=== PATIENT | male | born 1990 | race Caucasian/White ===

== ENCOUNTER 2019-08-13 01:15 | Day surgery (SDC) | payer BC, MEDICAID, SELFPAY ==
[2019-08-11 09:17] VITALS: BMI 29.3
[2019-08-13 13:13] VITALS: BP 129/82; PULSE 76; RESP 16; TEMP 37.2; O2SAT 98
--- NOTE | 2019-08-13 13:20 | WPDANESEPPF ---
Anes - Initial Pre Proc Eval Procedure: Operation Date: 08/13/19 14:30 Proposed Procedures p Esophagogastroduodenoscopy - Davy Michel MD Date/Time: 08/13/19 13:20 Surgeon: Davy Michel MD Pre Op Diagnosis: GERD Patient Data Age: 28 Gender: M Height: 5 ft 5 in Weight: 80.1 kg Last Vital Signs Temp 98.9 F 08/13/19 13:13 Pulse 76 08/13/19 13:13 Resp 16 08/13/19 13:13 BP 129/82 08/13/19 13:13 Pulse Ox 98 08/13/19 13:13 Allergies Allergy/AdvReac Type Severity Reaction Status Date / Time amoxicillin Allergy Unknown Rash Verified 08/11/19 09:08 Home Medications Medication Instructions Recorded Confirmed Type cholestyramine (with sugar) 4 gram 4 gm PO DAILY #378 gm 08/10/19 08/11/19 Rx oral powder aspirin 81 mg PO DAILY 08/11/19 08/11/19 History fluticasone propionate 1 spray INTRANASAL DAILY 08/11/19 08/11/19 History loratadine 10 mg PO DAILY 08/11/19 08/11/19 History ranitidine HCl 150 mg PO DAILY 08/11/19 08/11/19 History rosuvastatin 20 mg PO DAILY 08/11/19 08/11/19 History Patient hx anesthesia problems: none Family hx anesthesia problems: none PMFSH Past Medical History Medical History (Updated 08/10/19 @ 15:09 by Davy Michel MD) Aspiration into lower respiratory tract Choking due to food (regurgitated) Diarrhea Down syndrome GERD (gastroesophageal reflux disease) Polycythemia Family History Family History (Updated 03/11/18 @ 11:42 by DOCTOR UNKNOWN) Mother Patient's mother is in good health Father Family history of sleep apnea Social History Social History Smoking status: Never smoker Anes - Eval Final PreProcedure Day of Procedure 08/13/19 13:20 Patient weight: overweight Heart: regular rate and rhythm Lungs: clear to auscultation Airway: Mallampati scale class III Neurological: alert and oriented Last oral intake: >/= 8 hours ASA classification: II Emergent: no Anesthetic plan: proceed Anesthesia type and monitoring: general GIVS and standard monitoring Informed Consent: The patient's anesthetic plan and its attendant risks and benefits were discussed with the patient/family/POA. Questions were solicited and answers provided to the satisfaction of the patient/family/POA.
[2019-08-13] MEDS: LACTATED RINGERS 1,000 ML 150 ML IV CONT (13:25)
--- NOTE | 2019-08-13 14:43 | WPDHPUPDATE1 ---
History and Physical Update Update Date/Time: 08/13/19 14:43 History and Physical has been reviewed, including an updated exam of the patient. There are NO changes in the patient's condition. Risks, benefits, and alternatives have been discussed and questions answered. Patient agrees to proceed with procedure.
[2019-08-13 14:51] VITALS: BP 86/63; PULSE 79; RESP 22; O2SAT 98
[2019-08-13 15:01] VITALS: BP 105/74; PULSE 68; RESP 20; O2SAT 98
[2019-08-13 15:11] VITALS: BP 106/74; PULSE 64; RESP 20; O2SAT 99
== END 2019-08-13 15:24 | disposition home or self-care (01) ==
PROVIDERS: PCP Internal Medicine; Visit Provider Internal Medicine Gastroenterology
PROC: 0DJ08ZZ Inspection of Upper Intestinal Tract, Via Natural or Artificial Opening Endoscopic (ICD-10-PCS; CPT 43235; principal; 2019-08-13 14:30)
DX: K21.0 Gastro-esophageal reflux disease with esophagitis (principal); K29.50 Unspecified chronic gastritis without bleeding; Q90.9 Down syndrome, unspecified; Z79.82 Long term (current) use of aspirin
CPT/HCPCS: 43239; 87081; 88305; J2704; J7120

== ENCOUNTER 2019-08-20 14:51 | Outpatient (CLI) | payer BC, MEDICAID, SELFPAY ==
--- NOTE | ~2019-08-20 | XR_ITS ---
EXAMINATION: XR barium swallow modified DATE: 08/20/2019 15:37 INDICATION: Nausea with vomiting, unspecified. TECHNIQUE: Modified barium esophagram was performed by myself to administered fluoroscopy, in conjun ction with speech pathologist who administered barium in varying consistencies as per speech patholog ist documentation. This was recorded on tape. A single fluoroscopic spot image was recorded. The DA P for this procedure was 1.678 Gycm2. Fluoroscopy exposure time was 1.3 minutes. FINDINGS: Oral stage: Adequate function. Pharyngeal phase: Adequate function. Laryngeal penetration: None. Aspiration: None. Laryngeal sensitivity: Not applicable. IMPRESSION: Unremarkable modified barium swallow. Please refer to speech pathologist findings and sp ecific feeding recommendations. Reviewed, dictated and finalized at location A. RALOGY TEACHER IMPRESSION: Unremarkable modified barium swallow. Please refer to speech patho logist findings and specific feeding recommendations.
--- NOTE | 2019-08-21 08:55 | STOPEVAL ---
MODIFIED BARIUM SWALLOW EVALUATION: Thank you for referring this patient to [facility]. Admitting Provider: Attending Provider: Davy Michel MD FAX #: [phone] Referring Provider: SATINDER Outpatient Evaluation Start: 08/20/19 17:11 Freq: Status: Active Protocol: Document 08/20/19 17:11 BECHERERT (Rec: 08/20/19 17:13 BECHERERT [id number]) Therapy Assessment Status Assessment Status Assessment Status Evaluation Outpatient Past Medical History Neurological History Hx Other Neurological Disorders Yes: bernie syndrome-high functioning Cardiovascular History Hx Chest Pain Yes: r/o for heart testing neg Hx Hypercholesterolemia Yes Respiratory History Hx Pneumonia Yes: aspirate 01/2019 hospitalized at [facility] Hx Sleep Apnea Yes Gastrointestinal History Hx Cholecystectomy Yes: 06/2018 Hx Gastroesophageal Reflux Disease Yes Hx Hernia Yes: 2004 inguinal left repair Hx Other Gastrointestinal Disorders Yes: 07/2019 nausea, vomiting, abd pain for 1 yr Genitourinary History Hx Genitourinary Disorders No Significant History Musculoskeletal History Hx Arthritis Yes: generalized Hematological History Are You Aware That You Have Any Yes Antibodies? Hx Other Hematological Disorders Yes: polycythemia dx 07/2019 on aspirin 81mg Endocrine History Hx Endocrine Disorders No Significant History HEENT History Hx Tonsillectomy Yes Integumentary History Hx Skin Disorders No Significant History Reproductive History Hx Reproductive Disorders No Significant History Psychosocial History Hx Psychiatric Disorders No Significant History Pain History History of Any Previous or Ongoing No Significant History Instance of Pain Anesthesia History Hx Other Anesthesia Reactions Yes: nausea Prior Level of Function Prior Swallow Level Prior Intake Method Oral Prior Diet Soft and Bite-Sized (Level 6 Diet) Prior Liquid Consistency Thin (Level 0 Diet) Pain Assessment Timing of Pain Assessment Timing of Pain Assessment Assessment Self Report Self Report Pain Level 0 Pain Scale Pain Scale Used Numeric (1 - 10) Pain Score Pain Score 0: Self Report Modified Barium Swallow Evaluation Recent Swallowing History Reports Dysphagia Yes: when I eat food I get choked Duration of Dysphagia per patient, like forever Other Related History Down Syndrome Other Factors Impacting Dysphagia None History of Pneumonia No: per pt Reported Difficult Consistencies Solids
== END 2019-08-20 14:52 | disposition home or self-care (01) ==
LOC: ANHIMG 14:53
PROVIDERS: Visit Provider Internal Medicine Gastroenterology
DX: R11.2 Nausea with vomiting, unspecified (principal); T17.800A Unspecified foreign body in other parts of respiratory tract causing asphyxiation, initial encounter
CPT/HCPCS: 92611

== ENCOUNTER 2019-08-27 12:20 | Outpatient (CLI) | payer BC, MEDICAID, SELFPAY ==
--- NOTE | ~2019-08-27 | NM_ITS ---
EXAM: NM gastric emptying study DATE: 08/27/2019 17:02 INDICATION: Nausea and vomiting TECHNIQUE: A gastric emptying study was performed using the methodology of Ketan TORRES, et al. J Nucl Med 2007; 48:568-572. The patient was given a meal consisting of 2 scrambled eggs labeled with 0.926 mCi Tc-99m sulfur colloid, 2 slices of toast, two packages of jam, and approximately 120 mL of water . Simultaneous anterior and posterior 1-min images of the abdomen were obtained with the patient supi ne at multiple time points over a total period of 4 hours. The geometric mean of anterior and posteri or views was determined, and the percentage retention was calculated for each time point. COMPARISON: None. FINDINGS: Gastric retention of the radiotracer-labeled meal was 85%, 54%, and 41% at the 1-hour, 2-hour, and 4- hour time points, respectively. With this technique, apparent rapid gastric emptying is suggested by <30% gastric retention at 1 hour. Delayed gastric emptying is defined by gastric retention of >90% at 1 hour, >60% retention at 2 hours, or >10% retention at 4 hours. IMPRESSION: 1. Delayed gastric emptying. Reviewed, dictated and finalized at location A. TROOM REPORTER
== END 2019-08-27 12:21 | disposition home or self-care (01) ==
PROVIDERS: PCP Internal Medicine; Visit Provider Internal Medicine Gastroenterology
DX: R11.2 Nausea with vomiting, unspecified (principal); K30 Functional dyspepsia
CPT/HCPCS: 78264; A9541

== ENCOUNTER 2020-07-23 01:21 | Outpatient (CLI) | payer BC, MEDICAID, SELFPAY ==
[2020-07-23 18:47] LABS: SARS-CoV-2 RNA PCR Negative
== END 2020-07-23 01:22 | disposition home or self-care (01) ==
LOC: ANHCOVIDDT 01:22
PROVIDERS: PCP Internal Medicine; Visit Provider Internal Medicine Gastroenterology
DX: Z01.812 Encounter for preprocedural laboratory examination (principal); Z20.822 Contact with and (suspected) exposure to COVID-19
CPT/HCPCS: C9803; U0003; U0005

== ENCOUNTER 2020-07-26 01:53 | Day surgery (SDC) | payer BC, MEDICAID, SELFPAY ==
[2020-07-11 11:07] VITALS: BMI 29.0
[2020-07-26 06:49] VITALS: BP 109/72; PULSE 74; RESP 20; TEMP 37; O2SAT 99
[2020-07-26] MEDS: LACTATED RINGERS 1,000 ML 150 ML IV CONT (07:07)
--- NOTE | 2020-07-26 07:13 | WPDANESEPPF ---
Anes - Initial Pre Proc Eval Procedure: Operation Date: 07/26/20 08:00 Proposed Procedures p Colonoscopy - Davy Michel MD Date/Time: 07/26/20 07:13 Surgeon: Davy Michel MD Pre Op Diagnosis: Diarrhea Patient Data Age: 29 Gender: M Height: 5 ft 5 in Weight: 82.3 kg Last Vital Signs Temp 98.6 F 07/26/20 06:49 Pulse 74 07/26/20 06:49 Resp 20 07/26/20 06:49 BP 109/72 07/26/20 06:49 Pulse Ox 99 07/26/20 06:49 Allergies Allergy/AdvReac Type Severity Reaction Status Date / Time amoxicillin Allergy Unknown Rash Verified 07/26/20 06:48 Home Medications Medication Instructions Recorded Confirmed Type fluticasone propionate 1 spray INTRANASAL DAILY 08/11/19 07/11/20 History loratadine 10 mg PO DAILY 08/11/19 07/11/20 History ranitidine HCl 150 mg PO PRN PRN 08/11/19 07/11/20 History rosuvastatin 20 mg PO DAILY 08/11/19 07/11/20 History cholestyramine (with sugar) 4 gram See Rx Instructions .ROUTE 05/31/20 07/11/20 Rx oral powder .COMPLEX #1134 g omeprazole 20 mg capsule,delayed 20 mg PO BID 30 Days #60 cap 07/06/20 07/11/20 Rx release Patient hx anesthesia problems: none Family hx anesthesia problems: none PMFSH Past Medical History Medical History (Updated 07/06/20 @ 15:04 by Davy Michel MD) Aspiration into lower respiratory tract Blood in stool Choking due to food (regurgitated) Diarrhea Down syndrome Erosive gastritis Gastroparesis GERD (gastroesophageal reflux disease) Irritable bowel syndrome with diarrhea Polycythemia Submucosal lesion of stomach Family History Family History (Updated 03/11/18 @ 11:42 by DOCTOR UNKNOWN) Mother Patient's mother is in good health Father Family history of sleep apnea Social History Social History Smoking status: Never smoker Alcohol intake: never Substance use type: does not use Living arrangements: with family Spiritual care concerns: No Anes - Eval Final PreProcedure Day of Procedure 07/26/20 07:13 Patient weight: overweight Heart: regular rate and rhythm Lungs: clear to auscultation Airway: Mallampati scale class III Neurological: alert and oriented Last oral intake: >/= 8 hours ASA classification: II Emergent: no Anesthetic plan: proceed Anesthesia type and monitoring: general GIVS and standard monitoring Informed Consent: The patient's anesthetic plan and its attendant risks and benefits were discussed with the patient/family/POA. Questions were solicited and answers provided to the satisfaction of the patient/family/POA.
--- NOTE | 2020-07-26 07:37 | WPDHPUPDATE1 ---
History and Physical Update Update Date/Time: 07/26/20 07:37 History and Physical has been reviewed, including an updated exam of the patient. There are NO changes in the patient's condition. Risks, benefits, and alternatives have been discussed and questions answered. Patient agrees to proceed with procedure.
[2020-07-26 07:54] VITALS: BP 83/48; PULSE 62; RESP 15; O2SAT 93
[2020-07-26 08:04] VITALS: BP 83/47; PULSE 61; RESP 15; O2SAT 95
[2020-07-26 08:14] VITALS: BP 82/52; PULSE 60; RESP 15; O2SAT 97
[2020-07-26 08:20] VITALS: BP 106/62; PULSE 61; RESP 18; O2SAT 99
== END 2020-07-26 08:38 | disposition home or self-care (01) ==
PROVIDERS: PCP Internal Medicine; Visit Provider Internal Medicine Gastroenterology
PROC: 0DJD8ZZ Inspection of Lower Intestinal Tract, Via Natural or Artificial Opening Endoscopic (ICD-10-PCS; CPT 45378; principal; 2020-07-26 08:00)
DX: R19.7 Diarrhea, unspecified (principal); Q90.9 Down syndrome, unspecified; K21.9 Gastro-esophageal reflux disease without esophagitis; K58.0 Irritable bowel syndrome with diarrhea; K29.70 Gastritis, unspecified, without bleeding; K31.84 Gastroparesis; D75.1 Secondary polycythemia; K64.8 Other hemorrhoids
CPT/HCPCS: 45380; 88305; J2704; J7120

== ENCOUNTER 2021-11-27 04:27 | Observation (INO) | payer BC, MEDICAID, SELFPAY ==
[2021-11-27] VITALS (21 sets, daily range): BP systolic 108–141; BP diastolic 62–92; PULSE 65–111; RESP 16–20; TEMP 36.6–36.9; O2SAT 93–100; BMI 30.7
--- NOTE | ~2021-11-27 | XR_ITS ---
EXAMINATION: XR chest 2V DATE: 11/27/2021 05:04 INDICATION: Chest pain. TECHNIQUE: Frontal and lateral views of the chest were obtained. COMPARISON: Chest 2 views 04/03/2018, CT abdomen and pelvis 11/27/2021 FINDINGS: The chest demonstrates clear lungs without pneumonia, pleural effusion, or pneumothorax. Th e heart size is normal. IMPRESSION: 1. No acute cardiopulmonary disease. Reviewed, dictated and finalized at location A.
--- NOTE | ~2021-11-27 | CT_ITS ---
EXAMINATION: CT abdomen pelvis wo con DATE: 11/27/2021 05:02 INDICATION: Chest and abdominal pain. Emesis. TECHNIQUE: Computed tomography (CT) of the abdomen and pelvis was performed without intravenous contr ast. Automated exposure control and iterative reconstruction technique were employed. The dose-length product was 692.39 mGy-cm. COMPARISON: CT abdomen and pelvis 02/15/2018 FINDINGS: The visualized portions of the lung bases demonstrate mild atelectasis. No pleural effusion . The heart size is normal. There is a small pericardial effusion. There is diffuse hepatic steatosis . The gallbladder is absent. The spleen, pancreas, adrenal glands, and kidneys are normal. There is n o urolithiasis. There are no dilated loops of bowel. The appendix is normal. There are no pathologica lly enlarged lymph nodes. There is no free intraperitoneal fluid. There is a right inguinal hernia co ntaining fat. There is mild lumbar spondylosis. IMPRESSION: 1. Right inguinal hernia containing fat. 2. Diffuse hepatic steatosis. 3. Small pericardial effusion. Reviewed, dictated and finalized at location A.
--- NOTE | ~2021-11-27 | XR_ITS ---
EXAMINATION: XR abdomen NG/feed tube insert DATE: 11/27/2021 06:30 INDICATION: Nasogastric tube placement. TECHNIQUE: An upright view of the abdomen was obtained. COMPARISON: CT abdomen and pelvis 11/27/2021 FINDINGS: The lower abdomen is excluded. The nasogastric tube tip is in the stomach. IMPRESSION: 1. Nasogastric tube tip in the stomach. Reviewed, dictated and finalized at location A.
--- NOTE | 2021-11-27 05:09 | ED.ABDPAIN ---
HPI - Abdominal Pain General Chief Complaint: Abdominal Pain Stated Complaint: black vomiting Time Seen by Provider: 11/27/21 04:37 Source: patient History of Present Illness HPI narrative: Patient presents with concern for throwing up black stuff. Patient ports he has been feeling well for the past couple days been having some chest pain and upper belly pain. This morning he threw up black grainy stuff family was concerned and brought him to the ER for further evaluation. Patient does see a GI physician for erosive esophagitis gastroparesis and has an EGD scheduled for 2 weeks. Patient's pain is achy, constant, no clear aggravating or alleviating factors, no radiation. Patient denies any lightheadedness or denies any fevers cough congestion or shortness of breath. Patient does report some diarrhea but mother reports he has chronic diarrhea. Denies any urinary symptoms. Reports he intermittently takes ibuprofen for various aches and pains but mom reports he he has taken approximately 2 doses in the past 48 hours Related Data Home Medications Medication Instructions Recorded Confirmed rosuvastatin 20 mg tablet 20 mg PO DAILY 08/11/19 11/23/21 fluticasone furoate 27.5 1 spray intranasal DAILY 11/16/21 11/23/21 mcg/actuation nasal spray,suspension (Flonase Sensimist) montelukast 10 mg tablet 10 mg PO DAILY 11/16/21 11/23/21 (Singulair) dicyclomine 10 mg capsule 10 mg PO TID 11/23/21 11/23/21 multivitamin with minerals-folic 1 tablet PO DAILY 11/23/21 11/23/21 acid 0.4 mg tablet omeprazole 20 mg capsule,delayed 40 mg PO DAILY 11/23/21 11/23/21 release Allergies Allergy/AdvReac Type Severity Reaction Status Date / Time amoxicillin Allergy Unknown Rash Verified 11/27/21 04:31 Review of Systems Review of Systems: CONSTITUTIONAL: Denies fever, chills, or sweats. EYES: Denies visual changes, redness, or discharge. ENT: Denies rhinorrhea, congestion, sore throat, or otalgia. CARDIOVASCULAR: Denies palpitations, or edema. RESPIRATORY: Denies cough or dyspnea. GASTROINTESTINAL: Abdominal pain with nausea and vomiting GENITOURINARY: Denies dysuria or hematuria. SKIN: Denies rash or itching. MUSCULOSKELETAL: Denies back pain, joint pain, or myalgia. NEUROLOGIC: Denies headache, numbness, dizziness, or weakness. PSYCHIATRIC: Denies anxiety or depression. All systems reviewed & are unremarkable except as noted in HPI and below PMFSH Past Medical History Medical History Aspiration into lower respiratory tract Bloating Blood in stool Choking due to food (regurgitated) Cough Diarrhea Down syndrome Erosive gastritis Gastroparesis GERD (gastroesophageal reflux disease) Irritable bowel syndrome with diarrhea Polycythemia Submucosal lesion of stomach Family History Family History Mother Patient's mother is in good health Hypertension Father Family history of sleep apnea Diabetes mellitus Hypertension Grandparent Cancer Hypertension Heart disease Social History Social History Smoking status: Never smoker Alcohol intake: never Substance use type: does not use Spiritual care concerns: No Exam Narrative: GENERAL: Well-appearing, well-nourished, and in no acute distress. HEAD: Normocephalic, atraumatic. EYES: PERRLA and EOMI. ENT: Nares clear, no rhinorrhea or epistaxis. Mucous membranes moist. NECK: Supple. No masses. No JVD CHEST: Clear to auscultation. No respiratory distress. No wheezes rales or rhonchi HEART: Regular rate and rhythm. No murmur heard. Normal peripheral pulses. ABDOMEN: Soft, nontender, nondistended, normal active bowel sounds. EXTREMITIES: Normal range of motion. No edema. SKIN: Warm, dry, no rash. NEURO: No focal deficits. Alert and oriented x3. PSYCH: Normal mood and affect. Course Reeva
[2021-11-27] MEDS: SODIUM CHLORIDE 0.9% IV 1,000 ML 999 ML IV CONT (05:24)
[2021-11-27] MEDS: PANTOPRAZOLE SODIUM IV 40 MG VIAL 80 MG IV PUSH (05:26)
[2021-11-27 05:28] LABS: Basophils Absolute Auto 0.1 K/mm3 (0.0-0.1); Basophils Percent Auto 0.9 % (0.2-1.2); Eosinophils Percent Auto 0.7 % (0-4.4); Hematocrit 45.2 % (42.0-52.0); Hemoglobin 15.1 g/dL (14.0-18.0); Immature Granulocyte Absolute 0.02 K/mm3 (0.00-0.031); Immature Granulocyte Percent A 0.4 % (0-0.5); Lymphocytes Absolute Auto 1.27 K/mm3 (0.9-3.2); Lymphocytes Percent Auto 23.2 % (18.3-44.2); Mean Corpuscular HGB Conc 33.4 g/dl (32-36); Mean Corpuscular Hemoglobin 29.4 pg (26-34); Mean Corpuscular Volume 88.1 fl (80-100); Mean Platelet Volume 10.4 fl (7.4-10.4); Monocytes Absolute Auto 0.6 K/mm3 (0.1-0.6); Monocytes Percent Auto 11.7 % (2.6-8.5); Neutrophils Absolute Auto 3.5 K/mm3 (1.3-6.7); Neutrophils Percent Auto 63.1 % (45.5-73.1); Platelet Count Result 232 k/mm3 (150-375); Red Blood Count 5.13 M/mm3 (4.6-6.20); Red Cell Distribution Width 13.6 % (11.5-14.5); White Blood Count 5.5 K/mm3 (4.5-10.0)
[2021-11-27 05:40] LABS: INR 1.1; Prothrombin Time 13.9 Seconds (11.1-14.7)
[2021-11-27 05:41] LABS: Partial Thromboplastin Time 29.3 SECONDS (22.3-36.8)
[2021-11-27 05:44] LABS: Alanine Aminotransferase 24 U/L (6-50); Albumin Level 4.1 g/dL (3.5-5.1); Alkaline Phosphatase 90 U/L (38-126); Anion Gap 7 mmol/L (8-16); Aspartate Amino Transferase 25 U/L (17-59); Bilirubin,Total 0.7 mg/dL (0.2-1.3); Blood Urea Nitrogen 12 mg/dL (9-20); Calcium 8.4 mg/dL (8.4-10.2); Carbon Dioxide 31 mmol/L (22-30); Chloride 101 mmol/L (98-107); Estimated CRCL calculation 89 ml/min; Estimated Glomerular Filt Rate > 60; Glucose 114 mg/dL (65-110); Lipase 28 U/L (23-300); Magnesium 1.9 mg/dL (1.6-2.3); Potassium 3.6 mmol/L (3.4-5.0); Sodium 139 mmol/L (137-145)
[2021-11-27] MEDS: OCTREOTIDE ACETATE 50 MCG/ML VIAL IV PUSH (05:46)
[2021-11-27] MEDS: ONDANSETRON INJ 4 MG/2 ML VIAL (06:08)
[2021-11-27 06:51] LABS: Hematocrit 41.4 % (42.0-52.0)
--- NOTE | 2021-11-27 07:55 | PC.NURSE ---
This patient, Zachery Olvera, was admitted to IMU Room 231-01. Patient/family oriented to hospital policies and general routines including ID bracelet, bed and alarms, visiting hours, pain management, procedures, bathroom and other care routines, personal items, smoking policy, room service/diet, and visiting hours. Information on how to activate the Rapid Response Team has been discussed. Patient/Family are encouraged to report perceived risks to care and to ask questions if they do not understand what they are told or what they should do.
--- NOTE | 2021-11-27 08:58 | PM.IMHP ---
H&P: HPI History of Present Illness Date/Time: 11/27/21 08:58 Chief Complaint: Coffee-ground emesis Narrative: This is a 31-year-old male who presents to the ED yesterday with sudden onset nausea and vomiting. He was vomiting black stuff and hence got alarmed and came to the ED for evaluation. He also associated chest pain and upper abdominal pain and sensation of bloating. He also had liquidy stool along with it. He has recurrent episodes of nausea vomiting and diarrhea in the past. He denies any dark colored stool or any blood in the stool. Denies any fresh blood in his vomitus. He reports his belly was bloated and reported it was hurting yesterday to his family but denies any pain today. NG has been placed in the ED and has been feeling better since then. No fever chills. No cough shortness of breath. His CT abdomen and pelvis did show any acute findings. He is admitted for further evaluation and management Review of Systems Review of Systems: - CONSTITUTIONAL: Denies weight loss, fever and chills. - HEENT: Denies changes in vision and hearing - RESPIRATORY: Denies SOB and cough. - CV: Denies palpitations and CP. - GI: Reports abdominal pain, nausea, vomiting and diarrhea. - : Denies dysuria and urinary frequency. - MSK: Denies myalgia and joint pain. - SKIN: Denies rash and pruritus. - NEUROLOGICAL: Denies headache and syncope. - PSYCHIATRIC: Denies recent changes in mood. Denies anxiety and depression. All systems reviewed & are unremarkable except as noted in HPI and below Constitutional: Constitutional: Reports fatigue and Reports weakness Neurologic: Reports weakness Endocrine: Endocrine: Reports fatigue PMFSH Past Medical History Medical History Aspiration into lower respiratory tract Bloating Blood in stool Choking due to food (regurgitated) Cough Diarrhea Down syndrome Erosive gastritis Gastroparesis GERD (gastroesophageal reflux disease) Irritable bowel syndrome with diarrhea Polycythemia Submucosal lesion of stomach Family History Family History Mother Patient's mother is in good health Hypertension Father Family history of sleep apnea Diabetes mellitus Hypertension Grandparent Cancer Hypertension Heart disease Social History Social History Smoking status: Never smoker Alcohol intake: never Substance use type: does not use Spiritual care concerns: No Meds Home Medications and Allergies Home Medications Medication Instructions Recorded Confirmed Type rosuvastatin 20 mg tablet 20 mg PO DAILY 08/11/19 11/23/21 History fluticasone furoate 27.5 1 spray intranasal DAILY 11/16/21 11/23/21 History mcg/actuation nasal spray,suspension (Flonase Sensimist) montelukast 10 mg tablet 10 mg PO DAILY 11/16/21 11/23/21 History (Singulair) dicyclomine 10 mg capsule 10 mg PO TID 11/23/21 11/23/21 History multivitamin with minerals-folic 1 tablet PO DAILY 11/23/21 11/23/21 History acid 0.4 mg tablet omeprazole 20 mg capsule,delayed 40 mg PO DAILY 11/23/21 11/23/21 History release Allergies Allergy/AdvReac Type Severity Reaction Status Date / Time amoxicillin Allergy Unknown Rash Verified 11/27/21 04:31 Vital Signs Vital Signs - 24 hr 11/27/21 04:31 11/27/21 05:31 11/27/21 05:32 Temperature 98.4 F Pulse Rate 109 H Respiratory Rate 16 Blood Pressure 139/90 125/87 Pulse Oximetry 98 95 96 Oxygen Delivery Room Air 11/27/21 05:45 11/27/21 06:00 11/27/21 06:01 Temperature Pulse Rate Respiratory Rate Blood Pressure 133/70 Pulse Oximetry 94 94 95 Oxygen Delivery 11/27/21 06:15 11/27/21 06:31 11/27/21 07:55 Temperature 98 F Pulse Rate 100 Respiratory Rate 16 Blood Pressure 141/92 H 113/69 Pulse Oximetry 96 93 Oxygen
--- NOTE | 2021-11-27 10:06 | WPDGICN ---
Assessment and Plan Assessment and plan (1) Coffee ground emesis: Code(s): K92.0 - Hematemesis Status: Acute Assessment and Plan: NGT in place, started on iv protonix will proceed with EGD today, he is npo status previously had erosive esophagitis and also gastritis monitor for more signs of bleeding also presented with diarrhea ? gastroenteritis but already feeling better (2) GI bleed: Qualifiers: GI bleed type/associated pathology: unspecified gastrointestinal hemorrhage type Qualified Code(s): K92.2 - Gastrointestinal hemorrhage, unspecified Code(s): K92.2 - Gastrointestinal hemorrhage, unspecified Status: Acute Assessment and Plan: monitor hb stable (3) Nausea & vomiting: Qualifiers: Vomiting type: unspecified Qualified Code(s): R11.2 - Nausea with vomiting, unspecified Code(s): R11.2 - Nausea with vomiting, unspecified Status: Acute Assessment and Plan: resolved, ngt in place CT scan reviewed (4) Erosive gastritis: Code(s): K29.60 - Other gastritis without bleeding Status: Acute Assessment and Plan: previous egd (5) Gastroparesis: Code(s): K31.84 - Gastroparesis Status: Acute (6) Irritable bowel syndrome with diarrhea: Code(s): K58.0 - Irritable bowel syndrome with diarrhea Status: Acute Assessment and Plan: had colonoscopy in the past (7) Diarrhea: Qualifiers: Diarrhea type: unspecified type Qualified Code(s): R19.7 - Diarrhea, unspecified Code(s): R19.7 - Diarrhea, unspecified Status: Acute GI Consult Note Consult date/time: 11/27/21 10:06 Reason for consult: coffee ground emesis HPI: Zachery Olvera is a 31 year old male who is my clinic patient. He has Down's, gastroparesis (did not tolerate reglan), also erosive esophagitis and gastrtiis (on omeprazole) when I peformed EGD 2019 and using low dose of omeprazole, incidental finding of submucosal nodule for which he had EUS, benign findings possible pancreatic rest. Also had colonoscopy unremarkable with normal random colon bx. He has seeing me because also persistent cough, ENT evaluation without bvious findings. ENT recently increased his omeprazole to 40mg and he was in the office recently with his mother. Last 2 days he has been having diarrhea with abdominal discomfort, nausea and vomiting dark material, no report of melena. NG was placed in the ED and has been feeling better since then.? CT abdomen and pelvis reviewed and show any acute findings. Hb 14. Started on iv protonix and octreotide (no h/o liver disease). Review of Systems Review of Systems: - CONSTITUTIONAL: Denies weight loss, fever and chills. - HEENT: Denies changes in vision and hearing - RESPIRATORY: Denies SOB and cough. - CV: Denies palpitations and CP. - GI: Reports abdominal pain, nausea, vomiting and diarrhea. - : Denies dysuria and urinary frequency. - MSK: Denies myalgia and joint pain. - SKIN: Denies rash and pruritus. - NEUROLOGICAL: Denies headache and syncope. - PSYCHIATRIC: Denies recent changes in mood. Denies anxiety and depression. All systems reviewed & are unremarkable except as noted in HPI and below Constitutional: Constitutional: Reports fatigue and Reports weakness Neurologic: Reports weakness Endocrine: Endocrine: Reports fatigue PMFSH Past Medical History Medical History Aspiration into lower respiratory tract Bloating Blood in stool Choking due to food (regurgitated) Cough Diarrhea Down syndrome Erosive gastritis Gastroparesis GERD (gastroesophageal reflux disease) Irritable bowel syndrome with diarrhea Polycythemia Submucosal lesion of stomach Family History Family History Mother Patient's mother is in good health Hypertension Father Family history o
--- NOTE | 2021-11-27 10:10 | WPDANESEPPF ---
Anes - Initial Pre Proc Eval Procedure: Operation Date: 11/27/21 13:45 Proposed Procedures p Esophagogastroduodenoscopy - Davy Michel MD Date/Time: 11/27/21 10:10 Surgeon: Bhavin Licona MD Pre Op Diagnosis: GI bleed Patient Data Age: 31 Gender: M Height: 1.68 m Weight: 86.5 kg Last Vital Signs Temp 36.6 C 11/27/21 07:55 Pulse 100 11/27/21 07:55 Resp 16 11/27/21 07:55 BP 113/69 11/27/21 07:55 Pulse Ox 93 11/27/21 07:55 O2 Del Method Room Air 11/27/21 04:31 Allergies Allergy/AdvReac Type Severity Reaction Status Date / Time amoxicillin Allergy Unknown Rash Verified 11/27/21 04:31 Home Medications Medication Instructions Recorded Confirmed Type rosuvastatin 20 mg tablet 20 mg PO DAILY 08/11/19 11/23/21 History fluticasone furoate 27.5 1 spray intranasal DAILY 11/16/21 11/23/21 History mcg/actuation nasal spray,suspension (Flonase Sensimist) montelukast 10 mg tablet 10 mg PO DAILY 11/16/21 11/23/21 History (Singulair) dicyclomine 10 mg capsule 10 mg PO TID 11/23/21 11/23/21 History multivitamin with minerals-folic 1 tablet PO DAILY 11/23/21 11/23/21 History acid 0.4 mg tablet omeprazole 20 mg capsule,delayed 40 mg PO DAILY 11/23/21 11/23/21 History release Laboratory Tests 11/27/21 11/27/21 11/27/21 05:22 05:22 05:22 WBC 5.5 K/mm3 K/mm3 (4.5-10.0) RBC 5.13 M/mm3 M/mm3 (4.6-6.20) Hgb 15.1 g/dL g/dL (14.0-18.0) Hct 45.2 % % (42.0-52.0) MCV 88.1 fl fl (80-100) MCH 29.4 pg pg (26-34) MCHC 33.4 g/dl g/dl (32-36) RDW 13.6 % % (11.5-14.5) Plt Count 232 k/mm3 k/mm3 (150-375) MPV 10.4 fl fl (7.4-10.4) Immature Gran % (Auto) 0.4 % % (0-0.5) Neut % (Auto) 63.1 % % (45.5-73.1) Lymph % (Auto) 23.2 % % (18.3-44.2) Routt % (Auto) 11.7 % H % (2.6-8.5) Eos % (Auto) 0.7 % % (0-4.4) Baso % (Auto) 0.9 % % (0.2-1.2) Lymph # (Auto) 1.27 K/mm3 K/mm3 (0.9-3.2) Routt # (Auto) 0.6 K/mm3 K/mm3 (0.1-0.6) Eos # (Auto) 0.0 K/mm3 K/mm3 (0-0.3) Baso # (Auto) 0.1 K/mm3 K/mm3 (0.0-0.1) Abs Immat Gran (auto) 0.02 K/mm3 K/mm3 (0.00-0.031) Absolute Neuts (auto) 3.5 K/mm3 K/mm3 (1.3-6.7) Absolute Nucleated RBC 0.0 K/mm3 K/mm3 (0.0-0.012) Nucleated RBC % 0.0 % % (0.0-0.2) PT 13.9 Seconds Seconds (11.1-14.7) INR 1.1 APTT 29.3 SECONDS SECONDS (22.3-36.8) Sodium 139 mmol/L mmol/L (137-145) Potassium 3.6 mmol/L mmol/L (3.4-5.0) Chloride 101 mmol/L mmol/L (98-107) Carbon Dioxide 31 mmol/L H mmol/L (22-30) Anion Gap 7 mmol/L L mmol/L (8-16) BUN 12 mg/dL mg/dL (9-20) Creatinine 1.10 mg/dL mg/dL (0.7-1.3) Estim Creat Clear Calc 89 ml/min ml/min Estimated GFR > 60 (59 - ) Glucose 114 mg/dL H mg/dL (65-110) Calcium 8.4 mg/dL mg/dL (8.4-10.2) Magnesium 1.9 mg/dL mg/dL (1.6-2.3) Total Bilirubin 0.7 mg/dL mg/dL (0.2-1.3) AST 25 U/L U/L (17-59) ALT 24 U/L U/L (6-50) Alkaline Phosphatase 90 U/L U/L (38-126) Total Protein 7.0 g/dL g/dL (6.3-8.2) Albumin 4.1 g/dL g/dL (3.5-5.1) Lipase 28 U/L U/L (23-300) Blood Type Antibody Screen 11/27/21 11/27/21 05:22 06:35 WBC RBC Hgb 14.0 g/dL g/dL (14.0-18.0) Hct 41.4 % L % (42.0-52.0) MCV MCH MCHC RDW Plt Count MPV Immature Gran % (Auto) Neut % (Auto) Lymph % (Auto) Routt % (Auto) Eos % (Auto) Baso % (Auto) Lymph # (Auto)
[2021-11-27] MEDS: LACTATED RINGERS 1,000 ML 150 ML IV CONT (10:33)
[2021-11-27] MEDS: SODIUM CHLORIDE 0.9% IV 1,000 ML 125 ML IV CONT ×2 (12:25→22:08)
[2021-11-27 12:33] LABS: Hematocrit 40.4 % (42.0-52.0); Hemoglobin 13.5 g/dL (14.0-18.0)
[2021-11-27 18:36] LABS: Hematocrit 40.4 % (42.0-52.0); Hemoglobin 13.4 g/dL (14.0-18.0)
[2021-11-27] MEDS: PANTOPRAZOLE SODIUM IV 40 MG VIAL IV PUSH (20:05)
--- NOTE | 2021-11-27 20:05 | PC.NURSE ---
This patient, Zachery Olvera, was transferred to [ [id number]] on 11/27/21 at 2005. Personal belongings sent with patient. Report given from day shift RN. Appropriate documentation sent with patient.
[2021-11-27 22:39] LABS: IFOB Positive Control Positive; Immunochemical Fecal Occult Bl Negative (N)
[2021-11-27] MEDS: ONDANSETRON INJ 4 MG/2 ML VIAL IV PUSH (23:48)
[2021-11-28 01:12] LABS: Hematocrit 39.6 % (42.0-52.0); Hemoglobin 13.1 g/dL (14.0-18.0)
[2021-11-28] MEDS: BELLADONNA ALK/PHENOB ELIX 10 ML, MAG HYDROX/ALUMINUM HYD/SIMETH 30 ML, LIDOCAINE HCL 2... PO (02:13)
[2021-11-28] MEDS: traZODone HCL 50 MG TABLET 100 MG PO (02:14)
[2021-11-28 05:17] VITALS: BP 121/63; PULSE 116; RESP 20; TEMP 36.8; O2SAT 93
[2021-11-28] MEDS: SODIUM CHLORIDE 0.9% IV 1,000 ML 125 ML IV CONT (06:12)
--- NOTE | 2021-11-28 07:51 | WPDANESPN ---
Anes - Prog Note Post-Op Date/Time: 11/28/21 07:51 Cardiovascular status: normal Respiratory status: normal Airway patency: baseline Mental status: baseline Post-Op hydration status: normal Vital Signs: Last Vital Signs Temp 36.8 C 11/28/21 05:17 Pulse 116 H 11/28/21 05:17 Resp 20 11/28/21 05:17 BP 121/63 11/28/21 05:17 Pulse Ox 93 11/28/21 05:17 O2 Del Method Room Air 11/27/21 20:00 O2 Flow Rate 2 11/27/21 14:48 Pain Score (VAS): 0 I/O: Intake & Output 11/27/21 11/27/21 11/28/21 15:59 23:59 07:59 Intake Total 240 1740 1000 Output Total 700 Balance 240 1740 300 Laboratory Tests 11/28/21 01:07 11/27/21 05:22 11/27/21 11/27/21 11/27/21 12:29 18:31 22:02 Hgb 13.5 L 13.4 L Hct 40.4 L 40.4 L Stl Occult Blood (IFOB) Negative 11/28/21 01:07 Hgb 13.1 L Hct 39.6 L Stl Occult Blood (IFOB) Post-procedural complaints: none Patient Feedback: Patient satisfied with anesthetic care.
[2021-11-28] MEDS: PANTOPRAZOLE SODIUM IV 40 MG VIAL IV PUSH (08:50)
--- NOTE | 2021-11-28 11:52 | WPDGIPROGNO ---
Progress Note: A&P Assessment and Plan (1) Coffee ground emesis: Code(s): K92.0 - Hematemesis Status: Acute Assessment and Plan: no more bleeding, egd showed ulcerative gastritis with no more bleeding he is tolerating diet and stable h/h ok to go home with ppi daily (2) Nausea & vomiting: Qualifiers: Vomiting type: unspecified Qualified Code(s): R11.2 - Nausea with vomiting, unspecified Code(s): R11.2 - Nausea with vomiting, unspecified Status: Acute Assessment and Plan: resolved (3) Gastritis: Code(s): K29.70 - Gastritis, unspecified, without bleeding Status: Acute (4) Gastroparesis: Code(s): K31.84 - Gastroparesis Status: Acute (5) Down syndrome: Code(s): Q90.9 - Down syndrome, unspecified Status: Acute Subjective Date/time seen: 11/28/21 11:52 he is eating regular food and doing fine, some minimal chest pain after egd. Mother is at bedside Review of Systems Constitutional: Constitutional: Denies headache(s) and Denies weakness Eyes: Eyes: Denies blurry vision ENT: Reports Normal hearing present, Denies headache(s) and Denies neck pain Cardiovascular: Cardiovascular: Denies chest pain and Denies dyspnea Respiratory: Respiratory: Denies dyspnea Gastrointestinal: Gastrointestinal: Reports no additional gastrointestinal complaints Genitourinary: Genitourinary: Denies dysuria Musculoskeletal: Musculoskeletal: Denies neck pain Integumentary/Breasts: Skin/Breast: Denies dry skin Neurologic: Reports Normal hearing present, Denies headache(s) and Denies weakness Psychiatric: Psychiatric: Denies anxiety Endocrine: Endocrine: Denies change in body appearance Hematologic/Lymphatic: Hematologic/Lymphatic: Denies easy bleeding Allergic/Immunologic: Allergic/Immunologic: Denies urticaria Exam Const: General: comfortable and no acute distress HENMT: General nose exam: Normal nares present Eyes: General: appearance normal, both eyes and all related structures Neck: Neck: no JVD Resp: Auscultation: clear to auscultation bilaterally Cardio: Rate: regular rate Rhythm: regular rhythm GI: Inspection: non-distended GI Palp: Yes Soft to palpation Skin: General skin exam: normal color Neuro: General: gait normal Speech: normal speech Extrem: General: normal to inspection Psych: Mental Status: mental status grossly normal Objective Data Vital Signs Vital Signs: Vital Signs - 24 hr 11/27/21 12:00 11/27/21 14:48 11/27/21 14:00 Temperature 98.3 F Pulse Rate 84 87 Respiratory Rate 16 Blood Pressure 136/78 Pulse Oximetry 100 97 Oxygen Delivery Nasal Cannula Oxygen Flow Rate 2 11/27/21 12:00 11/27/21 12:00 11/27/21 16:00 Temperature Pulse Rate 85 78 Respiratory Rate Blood Pressure Pulse Oximetry Oxygen Delivery Room Air Oxygen Flow Rate 11/27/21 16:00 11/27/21 20:13 11/27/21 20:00 Temperature 98 F 98.4 F Pulse Rate 82 82 82 Respiratory Rate 16 20 20 Blood Pressure 114/74 121/74 Pulse Oximetry 95 96 96 Oxygen Delivery Room Air Oxygen Flow Rate 11/28/21 05:17 Temperature 98.2 F Pulse Rate 116 H Respiratory Rate 20 Blood Pressure 121/63 Pulse Oximetry 93 Oxygen Delivery Oxygen Flow Rate Intake/Output Intake/Output: Intake & Output 11/25/21 11/26/21 11/27/21 11/28/21 23:59 23:59 23:59 23:59 Intake Total 2980 1240 Output Total 100 700 Balance 2880 540 Meds/Results Medications: Active Medications Generic Name Dose Route Start Last Admin Trade Name Freq PRN Reason Stop Dose Admin Ondansetron HCl 4 mg 11/27/21 06:16 11/27/21 23:48 Ondansetron Inj 4 Mg/2 Ml Vial IV PUSH 4 mg Q4H PRN Administration Nausea Pantoprazole Sodium 40 mg 11/27/21 21:00 11/28/21 08:50 Pantoprazole Sodium Iv 40 Mg Vial IV PUSH 40 mg Q12HR KATH Administration Trazodone HCl 100 mg 11/28/21 02:01 11/28/21
--- NOTE | 2021-11-28 14:18 | PM.DS ---
DS: Admitting Diagnosis Discharge Date 11/28/21 Admitting Diagnosis Coffee ground emesis DS: Discharge Diagnosis Discharge Diagnosis (1) Coffee ground emesis: Code(s): K92.0 - Hematemesis Status: Acute (2) Erosive gastritis: Code(s): K29.60 - Other gastritis without bleeding Status: Acute (3) Submucosal lesion of stomach: Code(s): K31.89 - Other diseases of stomach and duodenum Status: Acute (4) Gastroparesis: Code(s): K31.84 - Gastroparesis Status: Acute (5) Irritable bowel syndrome with diarrhea: Code(s): K58.0 - Irritable bowel syndrome with diarrhea Status: Acute (6) Down syndrome: Code(s): Q90.9 - Down syndrome, unspecified Status: Acute (7) Gastritis: Code(s): K29.70 - Gastritis, unspecified, without bleeding Status: Acute (8) Nausea & vomiting: Qualifiers: Vomiting type: unspecified Qualified Code(s): R11.2 - Nausea with vomiting, unspecified Code(s): R11.2 - Nausea with vomiting, unspecified Status: Acute (9) GERD (gastroesophageal reflux disease): Qualifiers: Esophagitis presence: esophagitis presence not specified Qualified Code(s): K21.9 - Gastro-esophageal reflux disease without esophagitis Code(s): K21.9 - Gastro-esophageal reflux disease without esophagitis Status: Acute (10) Hepatic steatosis: Code(s): K76.0 - Fatty (change of) liver, not elsewhere classified Status: Acute DS: Summary Hospital Course Reason for hospitalization: 31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 Please see H&P for details Hospital Course: patient presents emergency room with complaints of coffee-ground emesis upper pain. Hemoglobin was normal on admission but did trend downward to 13. CMP and lipase were normal. Stool guaiac was negative. Patient had NG tube placed. CT of the abdomen pelvis showed diffuse hepatic steatosis, small pericardial effusion a right inguinal hernia containing fat. Chest x-ray was clear. Is started on Protonix and octreotide. GI was consulted. EGD showed reflux esophagitis grade 1 with moderate localized ulcerative gastritis. The nausea and vomiting resolved. The NG tube was removed. Restarted on diet and this was advanced. He tolerated regular diet. He overall did well date of discharged home on 11/28/2021. Status at Discharge Cognitive/behavioral status at discharge: stable Time Spent with Patient Time attestation: Total time spent providing and/or coordinating discharge services: 34 minutes Time spent: Greater than 30 minutes Exam Narrative: AF 98.2 121/63 116 20 93% ra Gen - NARD HEENT - Down facial features Chest - CTA bilaterally, nml RR CV - RRR S1/S2 (not tachy at the time of my visit) Abd - Soft, NT/ND, Positive BS Ext - No pedal edema Psych - Nml mood and affect. Skin - Warm and dry DS: Data Data Completed and Pending Pending studies at discharge: Pending at discharge 11/27/21 10:48 Surgical [PTH] Routine Labs on day of discharge: Labs from last 24 hours 11/28/21 11/27/21 11/27/21 01:07 22:02 18:31 Hgb 13.1 L 13.4 L Hct 39.6 L 40.4 L Stl Occult Blood (IFOB) Negative Discharge Plan Discharge Attending physician on discharge: Abhay Carlson Consulting providers: Davy Michel Discharging Clinician: Abhay Carlson Anticipated Discharge Date/Time: 11/28/21 14:28 Patient Disposition: Home, Self-Care Activity: as tolerated Diet: regular Discharge Instructions: Please avoid large gathering, wear face coverings in public and practice social distance. Please do not lie down after eating. Try to walk for 10-15 minutes afte eating. Recommend eating smaller, mor frequent meals. Do not overeat. Take precautions to avoid falls. Rise slowly from a lying or sitting position. Pause before standing or walking. Co
--- NOTE | 2021-12-01 07:01 | PC.NURSE ---
stomach bx shows no pathological abnormality. Dr. Robyn smith.
== END 2021-11-28 16:22 | disposition home or self-care (01) ==
LOC: ANHED 06:16 → ANHIMU 07:51 → ANH3MED 11-28 06:42 → ANHIMU 11-29 14:56
PROVIDERS: Internal Medicine Gastroenterology; Admitting Provider Internal Medicine; Emergency Provider Emergency Medicine; PCP Internal Medicine; Visit Provider Internal Medicine
PROC: 0DJ08ZZ Inspection of Upper Intestinal Tract, Via Natural or Artificial Opening Endoscopic (ICD-10-PCS; CPT 43235; principal; 2021-11-27 13:45)
DX: K92.0 Hematemesis (principal); K25.9 Gastric ulcer, unspecified as acute or chronic, without hemorrhage or perforation; K29.60 Other gastritis without bleeding; K21.00 Gastro-esophageal reflux disease with esophagitis, without bleeding; D13.1 Benign neoplasm of stomach; K31.84 Gastroparesis; K58.0 Irritable bowel syndrome with diarrhea; Q90.9 Down syndrome, unspecified; D75.1 Secondary polycythemia
CPT/HCPCS: 43239; 36415; 71046; 74176; 80053; 82274; 83690; 83735; 85014; 85018; 85025; 85610; 85730; 86850; 86900; 86901; 88305; 96361; 96374; 96375; 96376; 99285; A9270; C9113; G0378; J2354; J2405; J2704; J7030; J7060; J7120

== ENCOUNTER 2022-05-02 13:26 | Outpatient (CLI) | payer BC, MEDICAID, SELFPAY ==
--- NOTE | ~2022-05-02 | XR_ITS ---
EXAMINATION: XR chest 2V DATE: 05/02/2022 13:45 INDICATION: Upper respiratory tract infection TECHNIQUE: PA and lateral views of the chest were obtained. COMPARISON: Chest radiograph dated 11/27/2021 FINDINGS: Mild linear discoid atelectasis at the left lung base on the lateral projection. No other airspace op acities, pulmonary edema, pleural effusion or pneumothorax. The cardiomediastinal silhouette is autumn l. Mild mid thoracic dextrocurvature. IMPRESSION: 1. Mild left basilar discoid atelectasis. No other acute cardiopulmonary disease. Reviewed, dictated and finalized at location A. TAL ASSISTANT IMPRESSION: 1. Mild left basilar discoid atelectasis. No other acute cardiopulmonary diseas e.
== END 2022-05-02 13:27 | disposition home or self-care (01) ==
PROVIDERS: PCP Internal Medicine; Visit Provider Internal Medicine
DX: J06.9 Acute upper respiratory infection, unspecified (principal); J98.11 Atelectasis
CPT/HCPCS: 71046

== ENCOUNTER 2022-05-09 11:56 | Emergency (ER) | payer BC, MEDICAID, SELFPAY ==
--- NOTE | ~2022-05-09 | XR_ITS ---
EXAMINATION: XR chest 2V DATE: 05/09/2022 14:51 INDICATION: Productive cough and chest pain TECHNIQUE: PA and lateral views of the chest are obtained. COMPARISON: 05/02/2022 FINDINGS: There is improving atelectasis of the left lung base. No pleural effusion or pneumothorax. The cardiomediastinal silhouette is normal. Mild thoracic dextrocurvature is again noted. IMPRESSION: 1. Improving left basilar atelectasis. Reviewed, dictated and finalized at location F. M BOX HAND
--- NOTE | ~2022-05-09 | CT_ITS ---
EXAMINATION: CT abdomen pelvis w con DATE: 05/09/2022 14:47 INDICATION: Bodyaches, fever. Cough. TECHNIQUE: Computed tomography (CT) of the abdomen and pelvis was performed with 100 CC Omnipaque 350 intravenous contrast. Automated exposure control and iterative reconstruction technique were employe d. Exam dose: 561.86 mGy-cm total exam DLP. COMPARISON: 11/27/2021 CT abdomen pelvis FINDINGS: Minimal focal infiltrate or atelectasis at the base of the lingula there is suggestion of m ild left lower lobe perihilar infiltrate. Normal heart size. No pericardial or pleural effusion. Small sliding hiatal hernia. Status post cholecystectomy. No hepatic, splenic, pancreatic, adrenal or renal space-occupying mass l esion is evident. No bile duct or pancreatic duct dilatation. No urinary tract calculus or hydroureteronephrosis. Normal caliber of the abdominal aorta. No intraperitoneal or retroperitoneal or pelvic mass lesion or adenopathy or ascites. Moderate diffuse thickening of the urinary bladder wall which may be due to the postevacuation state. No perivesical fat stranding or fluid. Urinary bladder, prostate gland and seminal vesicles are othe rwise unremarkable. The urinary bladder is not visualized. No bowel obstruction or intraperitoneal free air. Very small fat-containing umbilical hernia. Probable postoperative scarring in the right inguinal area. Skeletal structures are unremarkable. IMPRESSION: Minimal focal infiltrate or atelectasis at the left lung base and suggestion of mild lef t lower lobe perihilar infiltrate Small sliding hiatal hernia Status post cholecystectomy, probable appendectomy Moderate nonspecific diffuse thickening of the urinary bladder wall Probable postoperative scarring, right inguinal area Reviewed, dictated and finalized at Location A. Reviewed, dictated and finalized at location A. GHT REPRESENTATIVE IMPRESSION: Minimal focal infiltrate or atelectasis at the left lung base and suggestion of mild left lower lobe perihilar infiltrate Small sliding hiatal hernia Status post cholecystectomy, probable appendectomy Moderate nonspecific diffuse thickening of the urinary bladder wall Probable postoperative scarring, right inguinal area
[2022-05-09 12:09] VITALS: BP 98/65; PULSE 114; RESP 18; TEMP 37.3; O2SAT 96
[2022-05-09 12:50] LABS: Influenza A QL RT-PCR Negative (Negative); Influenza B QL RT-PCR Negative (Negative); RSV RNA, RT-PCR Negative (Negative); SARS-CoV-2 RNA PCR Negative
[2022-05-09 14:17] LABS: Basophils Absolute Auto 0.1 K/mm3 (0.0-0.1); Basophils Percent Auto 0.5 % (0.2-1.2); Eosinophils Percent Auto 0.1 % (0-4.4); Hematocrit 51.4 % (42.0-52.0); Hemoglobin 17.3 g/dL (14.0-18.0); Immature Granulocyte Absolute 0.17 K/mm3 (0.00-0.031); Immature Granulocyte Percent A 0.9 % (0-0.5); Lymphocytes Absolute Auto 1.19 K/mm3 (0.9-3.2); Lymphocytes Percent Auto 6.3 % (18.3-44.2); Mean Corpuscular HGB Conc 33.7 g/dl (32-36); Mean Corpuscular Hemoglobin 30.3 pg (26-34); Mean Platelet Volume 10.4 fl (7.4-10.4); Monocytes Absolute Auto 1.4 K/mm3 (0.1-0.6); Monocytes Percent Auto 7.6 % (2.6-8.5); Neutrophils Absolute Auto 15.9 K/mm3 (1.3-6.7); Neutrophils Percent Auto 84.6 % (45.5-73.1); Platelet Count Result 253 k/mm3 (150-375); Red Blood Count 5.71 M/mm3 (4.6-6.20); Red Cell Distribution Width 13.9 % (11.5-14.5); White Blood Count 18.8 K/mm3 (4.5-10.0)
[2022-05-09 14:26] LABS: INR 1.1; Prothrombin Time 13.7 Seconds (11.1-14.7)
[2022-05-09 14:28] LABS: Partial Thromboplastin Time 24.5 SECONDS (22.3-36.8)
[2022-05-09 14:33] LABS: Lactic Acid Reflex 1.8 mmol/L (0.7-2.0)
[2022-05-09 14:35] LABS: Alanine Aminotransferase 44 U/L (6-50); Albumin Level 4.9 g/dL (3.5-5.1); Alkaline Phosphatase 93 U/L (38-126); Anion Gap 14 mmol/L (8-16); Aspartate Amino Transferase 44 U/L (17-59); Bilirubin,Total 1.4 mg/dL (0.2-1.3); Blood Urea Nitrogen 15 mg/dL (9-20); CRP 1.7 mg/dL (<1.0); Calcium 9.4 mg/dL (8.4-10.2); Carbon Dioxide 28 mmol/L (22-30); Chloride 95 mmol/L (98-107); Estimated CRCL calculation 81 ml/min; Estimated Glomerular Filt Rate > 60; Glucose 118 mg/dL (65-110); Sodium 137 mmol/L (137-145)
[2022-05-09 14:37] LABS: Appearance Urine Clear (Clear); Bilirubin Urine 1+ (Negative); Blood Urine Negative (Negative); Color Urine Yellow (Yellow); Glucose Urine UA Negative (Negative); Ketones Urine 1+ mg/dL (Negative); Leukocyte Esterase Ur Negative LEU/UL (Negative); Nitrate Urine Negative (Negative); Protein Urine 1+ mg/dL (Negative); pH Urine 6.5 (5.0-9.0)
[2022-05-09 15:00] LABS: Mucus Urine Rare /lpf; Squamous Epithelial Cell Urine Rare /hpf (Few); WBC Urine 0-3 /hpf
[2022-05-09 15:03] LABS: Add Urine Microscopic? YES
--- NOTE | 2022-05-09 15:19 | ED.URI ---
HPI - URI/Sore Throat General Chief Complaint: Upper Respiratory Infection Stated Complaint: fever, cough Time Seen by Provider: 05/09/22 13:12 History of Present Illness HPI Narrative: Pt presents with fever and cough for several days. Pt had strep a couple of weeks ago and finished antibiotic. Mother noted fever of 103 today. Pt had some abdominal pain earlier but not now. Pt denies urinary symptoms. Related Data Home Medications Medication Instructions Recorded Confirmed rosuvastatin 20 mg tablet 20 mg PO DAILY 08/11/19 11/27/21 fluticasone furoate 27.5 1 spray intranasal DAILY 11/16/21 11/27/21 mcg/actuation nasal spray,suspension (Flonase Sensimist) montelukast 10 mg tablet 10 mg PO DAILY 11/16/21 11/27/21 (Singulair) multivitamin with minerals-folic 1 tablet PO DAILY 11/23/21 11/27/21 acid 0.4 mg tablet psyllium husk 0.52 gram capsule 1.04 g PO HS 11/27/21 11/27/21 Allergies Allergy/AdvReac Type Severity Reaction Status Date / Time amoxicillin Allergy Unknown Rash Verified 11/27/21 04:31 Review of Systems Review of Systems: All systems reviewed & are unremarkable except as noted in HPI and below PMFSH Past Medical History Medical History (Updated 05/09/22 @ 15:22 by Glenn Mai III, DO) Aspiration into lower respiratory tract Bloating Blood in stool Choking due to food (regurgitated) Cough Diarrhea Down syndrome Erosive gastritis Gastritis Gastroparesis GERD (gastroesophageal reflux disease) Irritable bowel syndrome with diarrhea Polycythemia Submucosal lesion of stomach Family History Family History Mother Patient's mother is in good health Hypertension Father Family history of sleep apnea Diabetes mellitus Hypertension Grandparent Cancer Hypertension Heart disease Social History Social History Smoking status: Never smoker Alcohol intake: never Substance use: never Substance use type: does not use Spiritual care concerns: No Exam Const: General: healthy appearing Nutritional Appearance: well nourished Orientation/consciousness: patient oriented x3 Limitations: other limitations HENMT: Face/Nose/Sinus: Normal external nose present Mouth: Yes Normal oral and palatal mucosa present Throat: posterior oropharynx normal Eyes: EOM: EOMs intact bilaterally Neck: Neck: normal visual inspection Chest: Chest palpation & inspection: normal inspection of the chest Resp: Effort & Inspection: normal respiratory effort Auscultation: clear to auscultation bilaterally Cardio: Rate: regular rate Rhythm: regular rhythm GI: GI Palp: Yes Soft to palpation Auscultation: normal bowel sounds Skin: General skin exam: normal color Rashes: no rashes Wounds: no wounds Neuro: General: patient oriented x3, moves all extremities, no meningeal signs and no focal motor deficits Cranial nerves: Yes Nystagmus not present Speech: normal speech Extrem: General: normal to inspection Psych: Mental Status: mental status grossly normal Affect: normal affect Attitude: cooperative Course Vital Signs Vital signs: Vital Signs Temperature 99.1 F 05/09/22 12:09 Pulse Rate 114 H 05/09/22 12:09 Respiratory Rate 18 05/09/22 12:09 Blood Pressure 98/65 L 05/09/22 12:09 Pulse Oximetry 96 05/09/22 12:09 Oxygen Delivery Room Air 05/09/22 12:09 Temperature 99.1 F 05/09/22 12:09 Pulse Rate 114 H 05/09/22 12:09 Respiratory Rate 18 05/09/22 12:09 Blood Pressure 98/65 L 05/09/22 12:09 Pulse Oximetry 96 05/09/22 12:09 Oxygen Delivery Room Air 05/09/22 12:09 MDM - URI/Sore Throat Lab Data Result diagrams: 05/09/22 13:56 05/09/22 13:56 Labs: Lab Results 05/09/22 05/09/22 05/09/22 Range/Units 12:08 13:56 13:56 WBC 18.8 H (4.5-10.0) K/mm3 RBC 5.71 (4.6-6.20) M/mm3 Hgb
== END 2022-05-09 16:11 | disposition home or self-care (01) ==
PROVIDERS: Emergency Medicine; Emergency Provider Emergency Medicine; PCP Internal Medicine
DX: J40 Bronchitis, not specified as acute or chronic (principal); Z20.822 Contact with and (suspected) exposure to COVID-19; Q90.9 Down syndrome, unspecified; K21.9 Gastro-esophageal reflux disease without esophagitis
CPT/HCPCS: 36415; 71046; 74177; 80053; 81001; 83605; 85025; 85610; 85730; 86140; 87040; 87637; 99284; Q9967

== ENCOUNTER 2022-06-24 10:36 | Emergency (ER) | payer BC, MEDICAID, SELFPAY ==
[2022-06-24 11:00] VITALS: BP 130/59; PULSE 90; RESP 16; TEMP 37.9; O2SAT 97
--- NOTE | 2022-06-24 11:35 | ED.URI ---
HPI - URI/Sore Throat General Chief Complaint: Upper Respiratory Infection Stated Complaint: Cough Time Seen by Provider: 06/24/22 11:35 Source: patient, RN notes reviewed and old records reviewed Mode of arrival: ambulatory Limitations: no limitations History of Present Illness HPI Narrative: Year old male with a history down syndrome presents to the [facility] with his dad complaints of cough Family tested positive last week and the week before for COVID-19. Dad is requesting the patient receive paxlovid for his symptoms. Tested positive at home Onset (ago): day(s) (2) Related Data Home Medications Medication Instructions Recorded Confirmed rosuvastatin 20 mg tablet 20 mg PO DAILY 08/11/19 06/24/22 fluticasone furoate 27.5 1 spray intranasal DAILY 11/16/21 06/24/22 mcg/actuation nasal spray,suspension (Flonase Sensimist) montelukast 10 mg tablet 10 mg PO DAILY 11/16/21 06/24/22 (Singulair) multivitamin with minerals-folic 1 tablet PO DAILY 11/23/21 06/24/22 acid 0.4 mg tablet psyllium husk 0.52 gram capsule 1.04 g PO HS 11/27/21 06/24/22 trazodone 50 mg tablet 50 mg PO HS 06/24/22 06/24/22 Allergies Allergy/AdvReac Type Severity Reaction Status Date / Time amoxicillin Allergy Unknown Rash Verified 06/24/22 11:21 Review of Systems Review of Systems: All systems reviewed & are unremarkable except as noted in HPI and below Constitutional: Constitutional: Reports no additional constitutional complaints Eyes: Eyes: Reports no additional eye complaints ENT: Reports as per HPI and Reports nasal congestion Cardiovascular: Cardiovascular: Reports no additional cardiovascular complaints, Denies chest pain and Denies dyspnea Respiratory: Respiratory: Reports as per HPI, Denies chest congestion, Reports cough and Denies dyspnea Gastrointestinal: Gastrointestinal: Reports no additional gastrointestinal complaints, Denies abdominal pain, Denies nausea and Denies vomiting Musculoskeletal: Musculoskeletal: Reports no additional musculoskeletal complaints Integumentary/Breasts: Skin/Breast: Reports system reviewed and no additional complaints, except as docu Neurologic: Reports system reviewed and no additional complaints, except as documented Psychiatric: Psychiatric: Reports no additional psychiatric complaints Allergic/Immunologic: Allergic/Immunologic: Reports no additional allergic/immunologic complaints PMFSH Past Medical History Medical History (Updated 06/24/22 @ 11:47 by Haylie Rosa APRN) Aspiration into lower respiratory tract Bloating Blood in stool Choking due to food (regurgitated) Cough Diarrhea Down syndrome Erosive gastritis Gastritis Gastroparesis GERD (gastroesophageal reflux disease) Irritable bowel syndrome with diarrhea Polycythemia Submucosal lesion of stomach Family History Family History Mother Patient's mother is in good health Hypertension Father Family history of sleep apnea Diabetes mellitus Hypertension Grandparent Cancer Hypertension Heart disease Social History Social History Smoking status: Never smoker Alcohol intake: never Substance use: never Substance use type: does not use Spiritual care concerns: No Comments At the time of my signature, I reviewed and agree with the nursing past medical, surgical, social, and family history. There is no relevant family history pertinent to the patient complaint. Exam Const: General: cooperative, no acute distress, well developed, alert, ill appearing acutely (mild), uncomfortable, well groomed and well nourished Nutritional Appearance: well nourished and obese Orientation/consciousness: patient oriented x3 Limitations: no limitations HENMT: Head: normal to inspection Ears: hearing grossly normal bilaterally, external ears normal, TM's normal bilaterally and EAC's normal Face
== END 2022-06-24 11:59 | disposition home or self-care (01) ==
PROVIDERS: Emergency Provider Nurse Practitioner; PCP Internal Medicine
DX: U07.1 COVID-19 (principal); Q90.9 Down syndrome, unspecified; K31.84 Gastroparesis; K21.9 Gastro-esophageal reflux disease without esophagitis
CPT/HCPCS: 87426; 99213; C9803; G0463

== ENCOUNTER 2022-07-19 08:34 | Outpatient (CLI) | payer BC, MEDICAID, SELFPAY ==
--- NOTE | 2022-08-13 11:13 | WPDSLEEPSTUD ---
Sleep Study Date of Study: 07/19/22 Ordering Provider: Teena Piedra, RIVETING MACHINE OPERATOR TAPE CONTROL- Interpreting Physician: Erika Cooper MD Sleep Study Type: CPAP Titration Height: 1.63 m Weight: 84.368 kg Body Mass Index: 31.9 Neck Circumference (inches): 18.5 [place]: 4 Reason for Sleep Study Known mixed sleep apnea; WatchPat on 01/11/2016 with an AHI of 39.2, repeat home study on 12/10/2018 with an AHI of 36.7 with significant central apneas noted. He was started on APAP after insurance denied a titration. He had his wood machine carver on March 05, 2019. He has had good compliance but his apnea-hypopnea index remained elevated at 10.9. He was treated with APAP 9-18 cm with a medium pressure of 10.8 cm and a maximum pressure of 14.2 cm. He has excellent sleep hygiene. He avoids naps in the day. He presents for a titration to better treat his mixed sleep apnea compared to using APAP. Sleep History Zachery Olvera is a 31-year-old man with obstructive sleep apnea who is on CPAP treatment. He rarely awakens from sleep feeling short of breath while using CPAP. He frequently awakens at night with heartburn, belching or coughing. He frequently snores and is frequently loud. He frequently has trouble sleeping with a cold. He rarely gasps for breath at night. He occasionally has breathing problems at night observed by others. He does not sweat excessively at night or notice his heart pounding or beating irregularly at night. He rarely falls asleep during the day, rarely falls asleep involuntarily however never falls asleep while driving. He does not have loss of muscle tone with strong emotion. He does not have daytime difficulties due to excessive sleepiness. Does not feel paralyzed on waking or falling asleep. He does not have vivid dreamlike scenes on waking or falling asleep. He frequently feels afraid to go to sleep. He occasionally has nightmares. He frequently remembers his dreams. He constantly has racing thoughts. He rarely feels sad or depressed. He occasionally has anxiety. He rarely has muscular tension. He does not notice parts of his body jerking. He does not kick at night. He does not have crawling and aching feelings in his legs. He rarely has any kind of leg pain at night. He does not have morning jaw pain. He occasionally grinds his teeth during sleep. He occasionally is bothered by pain during the day. He rarely is awakened by pain at night. He rarely wakes up feeling stiff in the morning with sore achy muscles or pain in the neck and spine. He has headaches, stomach problems and he takes sedatives. Normal bedtime is midnight, falling asleep within 10 minutes typically waking once or twice at night, sometimes he does not wake at all. When awake he uses the bathroom. It may take him a few minutes to return to sleep. He wakes the morning at 10:30 a.m.. On weekends, goes to bed at 2:00 a.m. and wakes at 8:30 a.m. in general he does not take naps. A short nap lasting 10 or 15 minutes may be refreshing. He is drowsy for 3 hours after waking. He feels better in the afternoon compared to other times of day. Habits: Never smoked tobacco. No caffeine, alcohol or recreational substances. [facility] Past Medical History Medical History (Updated 08/13/22 @ 11:30 by Erika Cooper MD) Aspiration into lower respiratory tract Bloating Blood in stool Choking due to food (regurgitated) Cough Diarrhea Down syndrome Erosive gastritis Gastritis Gastroparesis GERD (gastroesophageal reflux disease) Irritable bowel syndrome with diarrhea Polycythemia Submucosal lesion of stomach Family History Family History Mother Patient's mother is in good health Hypertension Father Family history of sleep apnea Diabetes mellitus Hypertension Grandparent Cancer Hypertension Heart disease Social History Social History (Reviewed 06/24/22 @ 17:37 by SHIRLEY Piña
[2022-08-13 11:41] VITALS: BMI 31.9
--- NOTE | 2023-02-01 11:01 | SLEEP ---
pt unable to complete ess mother stated pt is doing well with device
== END 2022-07-20 07:16 | disposition home or self-care (01) ==
LOC: ANHCSM 08:36
PROVIDERS: PCP Internal Medicine; Visit Provider Nurse Practitioner
DX: G47.39 Other sleep apnea (principal); G47.33 Obstructive sleep apnea (adult) (pediatric)
CPT/HCPCS: 95811

== ENCOUNTER 2022-11-05 15:08 | Emergency (ER) | payer BC, MEDICAID, SELFPAY ==
--- NOTE | ~2022-11-05 | CT_ITS ---
EXAMINATION: 1. CT ankle RT wo con 2. CT foot RT wo con DATE: 11/05/2022 16:05 INDICATION: Right foot and ankle pain. TECHNIQUE: Computed tomography (CT) of the right foot and ankle was performed without intravenous con trast. Automated exposure control and iterative reconstruction technique were employed. The dose-joao th product was 281.64 mGy-cm. COMPARISON: Right ankle radiographs 05/03/2018 FINDINGS: RIGHT ANKLE: Bone alignment is normal. No fracture. The talar dome is normal. RIGHT FOOT: Bone alignment is normal. No fracture. There is mild osteoarthritis of first metatarsopha langeal joint. There is an enthesophyte at posterior aspect of calcaneal tuberosity. IMPRESSION: 1. No fracture. 2. Mild osteoarthritis of first metatarsophalangeal joint. Reviewed, dictated and finalized at location A. IMPRESSION: 1. No fracture. 2. Mild osteoarthritis of first metatarsophalangeal joint.
[2022-11-05 15:12] VITALS: BP 120/58; PULSE 82; RESP 18; TEMP 36.6; O2SAT 100
--- NOTE | 2022-11-05 15:58 | ED.EXTPRO ---
HPI - Extremity Problem General Chief complaint: Extremity Problem,Nontraumatic Stated complaint: pain in his legs Time Seen by Provider: 11/05/22 15:17 History of Present Illness HPI Narrative: 31-year-old male presented to the emergency department for evaluation of intermittent right foot and ankle pain. Patient was treated previously for concern for cellulitis. Father states that the swelling did improve at that time. Over the course of the last week the family was on vacation and patient was more ambulatory than previous. Over the course of vacation patient was complaining of right foot and ankle pain but also began complaining of left knee pain. It was thought that the left knee pain may be secondary to to favoring of the right ankle and foot. Related Data Home Medications Medication Instructions Recorded Confirmed rosuvastatin 20 mg tablet 20 mg PO DAILY 08/11/19 06/24/22 fluticasone furoate 27.5 1 spray intranasal DAILY 11/16/21 06/24/22 mcg/actuation nasal spray,suspension (Flonase Sensimist) montelukast 10 mg tablet 10 mg PO DAILY 11/16/21 06/24/22 (Singulair) multivitamin with minerals-folic 1 tablet PO DAILY 11/23/21 06/24/22 acid 0.4 mg tablet psyllium husk 0.52 gram capsule 1.04 g PO HS 11/27/21 06/24/22 trazodone 50 mg tablet 50 mg PO HS 06/24/22 06/24/22 Allergies Allergy/AdvReac Type Severity Reaction Status Date / Time amoxicillin Allergy Unknown Rash Verified 11/05/22 15:18 Review of Systems Review of Systems: All systems reviewed & are unremarkable except as noted in HPI and below PMFSH Past Medical History Medical History (Updated 11/06/22 @ 00:00 by Background Daemon) Aspiration into lower respiratory tract Bloating Blood in stool Choking due to food (regurgitated) Cough Diarrhea Down syndrome Erosive gastritis Gastritis Gastroparesis GERD (gastroesophageal reflux disease) Irritable bowel syndrome with diarrhea Polycythemia Submucosal lesion of stomach Family History Family History Mother Patient's mother is in good health Hypertension Father Family history of sleep apnea Diabetes mellitus Hypertension Grandparent Cancer Hypertension Heart disease Social History Social History (Reviewed 06/24/22 @ 17:37 by GERSON Piña Smoking status: Never smoker Alcohol intake: never Substance use: never Substance use type: does not use Living arrangements: with family Spiritual care concerns: No Exam Narrative: APPEARANCE: Well appearing, no pain, no distress, well-nourished. HEAD: normocephalic, atraumatic. EYES: PERRLA/EOMI, conjunctivae clear. NOSE: Normal no drainage NECK: Supple. No adenopathy, no masses. RESPIRATORY: Airway patent, respirations nonlabored. Clear to auscultation bilaterally, no rales, rhonchi, wheezing. CARDIOVASCULAR: Regular rate and rhythm without murmurs rubs or gallops. ABDOMINAL: Soft, nontender, nondistended, normal bowel sounds MUSCULOSKELETAL: Moves all extremities. Right lateral malleolus tenderness to palpation. No right calf tenderness to palpation NEURO: Alert. Cranial nerves II through XII intact. Good gait. Good coordination SKIN: No evidence of cellulitis or edema. PSYCHIATRIC: Normal affect/mood. Course Course Emergency Course: 31-year-old male presented the ED for evaluation of persistent right foot and right ankle pain. CTs were ordered since patient had negative outpatient films. CTs showed no occult fracture or dislocation. Patient and family were updated on the results of the imaging and patient was encouraged of close follow-up with orthopedics. Home therapies were discussed. Patient and family are comfortable with the plan with discharge and close follow-up. Vital Signs Vital signs: Vital Signs Temperature 98 F 11/05/22 15:12 Pulse Rate 82 11/05/22 15:12 Respiratory Rate 18 11/05/22 15:12 Blood Pressure 120/58 L
== END 2022-11-05 16:59 | disposition home or self-care (01) ==
PROVIDERS: Emergency Provider Emergency Medicine; PCP Internal Medicine
DX: M25.571 Pain in right ankle and joints of right foot (principal); Q90.9 Down syndrome, unspecified; K21.9 Gastro-esophageal reflux disease without esophagitis; K31.84 Gastroparesis; K58.0 Irritable bowel syndrome with diarrhea; D75.1 Secondary polycythemia; M19.071 Primary osteoarthritis, right ankle and foot
CPT/HCPCS: 73700; 99284

== ENCOUNTER 2024-10-01 21:11 | Emergency (ER) | payer BC, MEDICAID, SELFPAY ==
[2024-10-01 21:14] VITALS: BP 120/86; PULSE 100; RESP 20; TEMP 36.9; O2SAT 97
--- OUTSIDE RECORDS SUMMARY | 2024-10-01 21:14 | XMS_ITS | Clinical Summary ---
Author Organization [facility] Address [address] [place] [address] Care Team Providers Care Manager Integrated Name Role Phone Praveen Palumbo MD Primary Care Provide r Allergies Active Allergy Reactions Criticality Noted Date Comments Amoxicillin Medications loratadine 10 mg capsule Take by mouth daily Active fluticasone propionate (FLONASE) 50 mcg/actuation nasal spray Administer 1 spray into each nostril daily Active omeprazole (PriLOSEC) 20 mg capsule Take 1 capsule (20 mg total) by mouth 2 (two) times a day Active rosuvastatin (CRESTOR) 20 mg tablet Take 1 tablet (20 mg total) by mouth daily Active raNITIdine (ZANTAC) 150 mg tablet Take 1 tablet (150 mg total) by mouth daily as needed for heartburn Active cholestyramine- aspartame 4 gram powder Take 4 g by mouth as needed Active montelukast (SINGULAIR) 10 mg tablet Take 1 tablet (10 mg total) by mouth nightly Active pantoprazole DR (PROTONIX) 40 mg EC tablet Take 1 tablet (40 mg total) by mouth every morning 4 Active ergocalciferol (VITAMIN D) 50,000 unit capsule 4 Active traZODone (DESYREL) 50 mg tablet TAKE 1 TO 2 TABLETS BY MOUTH EVERY DAY NEEDED 4 Active Active Problems Problem Noted Date Diagnosed Date Knee pain 11/06/2013 Congenital pes planus 11/06/2013 Arthralgia of ankle 10/20/2012 Nasal congestion 05/20/2012 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 Scoliosis 05/20/2012 Myopia 11/14/2010 Anisometropia 11/14/2010 Astigmatism 11/14/2010 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 Vomiting 03/01/2009 Periumbilical abdominal pain 03/01/2009 Surgical History Surgery Date Site/Laterality Comments CHOLECYSTECTOMY TONSILLECTOMY/ADENOIDECTOMY INGUINAL HERNIA REPAIR Right x2 Medical History Medical History Date Comments PONV (postoperative nausea and vomiting) Polycythemia GERD (gastroesophageal reflux disease) Chronic diarrhea Cholelithiasis Dysphagia Down's syndrome Sleep apnea uses cpap Gastroparesis Hyperlipidemia Family History Medical History Relation Name Comments Kyphosis Father Roundback - (Ad ded by CHANA Conv) Low Back Pain Father Family history of low back pain - (Added by CHANA Conv) Pancreatic cancer Maternal Grandmother Relation Name Status Comments Father Maternal Grandmother Social History Tobacco Use Types Packs/Day Years Used Date Smoking Tobacco: Never Smokeless Tobacco: Never Alcohol Use Standard Drinks/Week Comments Never 0 (1 standard drink = 0.6 oz pur e alcohol) AUDIT-C Answer Date Recorded Q1: How often do you have a drink containing alcohol? Never 10/14/2023 Q2: How many drinks containi ng alcohol do you have on a typical day when you are drinking? Patient does not drink Q3: How often do you have si x or more drinks on one occasion? Never 10/14/2023 Personal Safety Answer Date Recorded Have you ever been in or are you currently in a harmful physical or emotional relationship or is someone making you feel afraid or unsafe? 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 Gender Identity Not on file Sexual Orientation Not on file Obstetrics History Last Filed Vital Signs Vital Sign Reading Time Taken Comments Blood Pressure 119/84 10/14/2023 10:15 AM CDT Pulse 61 10/14/2023 10:15 AM CDT Temperature 36.9 C (98.4 F) 10/14/2023 7:55 AM CDT Respiratory Rate 15 10/14/2023 10:15 AM CDT Oxygen Saturation 93% 10/14/2023 10:15 AM CDT Inhaled Oxygen Concentration - - Weight 83 kg (183 lb) 10/14/2023 7:55 AM CDT Height 166.4 cm (5' 5.5 ) 10/14/2023 7:55 AM CDT Body Mass Index 29.99 10/14/2023 7:55 AM CDT Plan of Treatment Health Maintenance Due Date Last Done Comments Depression Screening 1992 Hepatitis C Screening 1992 Regular Well Visit/Exam 18-64 2010 Influenza Vaccine (#1) 2024 3, 04/17/2020, 04/15/2020, Additional history exists DTaP/Tdap/Td Vaccine (8 - Td or Tdap) 07/16/2028 07/16/2018, 04/24/2007, 01/22/1997, Additional history exists Hepatitis B Screening Completed 02/10/1999 , 07/16/1998, 04/04/1998 Varicella Vaccines Completed 02/12/2009, 04/09/1997 HPV Vaccines Aged Out No longer eligi ble based on patient's age to complete this topic Pneumococcal vaccine <65 Aged Out No longer eligible based on patient's age to complete [place] [address] [employer]PA [employer] OOS [employer] ACCESS [employer]OS [employer]OS Advance Directives For more information, please contact: [phone] * Full Code (Latest Code Status on File) Date Activated Date Inactivated Comments 10/14/2023 7:44 AM 10/14/2023 2:33 PM * Full Code Date Activated Date Inactivated Comments 08/22/2020 9:40 AM 08/22/2020 5:59 PM * Full Code Date Activated Date Inactivated Comments 08/28/2019 9:46 AM 08/28/2019 4:23 PM Care Teams Manager Integrated Relationship Specialty Start Date End Date Praveen Palumbo MD [address] [address] PCP - General Internal Medicine 10/09/23
--- OUTSIDE RECORDS SUMMARY | 2024-10-01 21:14 | XMS_ITS | Referral Summary ---
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 Gender Identity Not on file Sexual Orientation Not on file Last Filed Vital Signs Vital Sign Reading [...] 10/14/2023 7:55 AM CDT Plan of Treatment Not on file Insurance IDPA BLUE ACCESS OOS IDPA BLUE ACCESS [employer]OS [employer] Advance Directives For more information, please contact: [phone] * Full Code (Latest Code Status on File) Date Activated Date Inactivated Comments 10/14/2023 7:44 AM 10/14/2023 2:33 PM * Full Code Date Activated Date Inactivated Comments 08/22/2020 9:40 AM 08/22/2020 5:59 PM * Full Code Date Activated Date Inactivated Comments 08/28/2019 9:46 AM 08/28/2019 4:23 PM Care Teams Placement Assistant Relationship Specialty Start Date End Date Praveen Palumbo MD [address] [facility] [address] [place] [address] PCP - General Internal Medicine 10/09/23
--- OUTSIDE RECORDS SUMMARY | 2024-10-01 21:14 | XMS_ITS | Clinical Summary ---
Author Organization [facility] Address [address] [facility] [place] [address] Care Team Providers Care Machine Molder Name Role Phone Michelle Irby MD Unavailable Peyton Palumbo MD Primary Care Provider Source Comments [facility],non-owned Affiliates and Associated Physician Practices is amultiple site organization consisting of ambulatory clinics and hospital sitesin [place], [place], [place] and [place]. This disclosure is being madepursuant to the Care Everywhere program and may not contain all information available regarding this patient. Last updated 18.[facility] Allergies Active Allergy Reactions Criticality Noted Date Comments Amoxicillin 03/16/2009 Medications * Be aware that medications may not be up to date on this document. Alwaysverify current medications with the patient. Medication Sig Dispensed Refills Start Date End Date Status cephALEXin (KEFLEX) 750 MG capsuleIndications:Ac lupe sinusitis Take 1 Cap by mouth every 12 hours for 10 days. 20 Cap 0 08/16/2010 Active acyclovir (ZOVIRAX) 5 % cream Apply to affected area 5 times daily. 5 g 3 10/19/2011 Active pantoprazole EC (PROTONIX) 40 MG tablet Take 1 Tab by mouth once daily for 90 days. 90 Tab 1 08/18/2012 Active Active Problems Problem Noted Date Diagnosed Date Down syndrome Overview (03/16/2009): 04/24/07 Immunizations Name Administration Dates Next Due DTaP VACCINE IM (6wk-6yrs) 01/22/1997,,06/03/1993,03/29/1993,01/24 HEP A PEDS 2 DOSE 04/23/2008,04/24/2007 HEP B VACCINE, PED/ADOL 02/10/1999,07/16/1998, HIB BOOSTER 07/06/1994,06/03/1993,03/29/1993 ,01/24/1993 INFLUENZA VACCINE 03/31/2009, 8,04/24/2007,04/25/2004,04/09 MENINGOCOCAL MENINGITIS 02/12/2009 MMR 01/22/1997,11/24/1993 POLIO OPV 01/22/1997,07/06/1994,03/29/1993 ,01/24/1993 PPD 02/04/2003,04/04/1998 TDAP (7yrs+) 04/24/2007 VARICELLA 02/12/2009,04/09/1997 Social History Tobacco Use Types Packs/Day Years Used Date Smoking Tobacco: Never Assessed Sex and Gender Information Value Date Recorded Sex Assigned at Not on file Gender Identity Not on file Sexual Orientation Not on file Last Filed Vital Signs Vital Sign Reading Time Taken Comments Blood Pressure 116/76 07/17/2011 11:22 AM FINANCIAL ANALYSIS ADVISOR Pulse 66 07/17/2011 11:22 AM FINANCIAL ANALYSIS ADVISOR Temperature 36.8 C (98.3 F) 07/17/2012 4:12 PM FINANCIAL ANALYSIS ADVISOR Respiratory Rate - - Oxygen Saturation - - Inhaled Oxygen Concentration - - Weight 78 kg (172 lb) 07/17/2012 4:12 PM FINANCIAL ANALYSIS ADVISOR Height 161.3 cm (5' 3.5 ) 07/17/2011 11:22 AM CS T Body Mass Index 29.99 07/17/2011 11:22 AM FINANCIAL ANALYSIS ADVISOR Plan of Treatment Health Maintenance Due Date Last Done Comments HIV SCREENING 11/21/2007 HEPATITIS C SCREENING 11/16/2010 DTAP/TDAP/TD VACCINES (7 - Td or Tdap) 04/24/2017 04/24/2007, 01/22/1997, 07/06/1994, Additional history exists COVID-19 VACCINE ( season) 2024 DEPRESSION SCREENING 06/24/2024 INFLUENZA VACCINE (Season Ended) 2025 03/31/2009, 04/23/2008, 04/24/2007, Additional history exists ZOSTER VACCINE (1 of 2) 2042 HIB VACCINE Completed 07/06/1994, 05/24, 03/29/1993, Additional history exists HEPATITIS B VACCINE Completed 02/10/1999, 07/16/1998, 04/04/1998 MENINGOCOCCAL GROUPS A/C/Y/W VACCINE Completed 02/12/2009 HPV VACCINE Aged Out No longer eligi ble based on patient's age to complete this topic MENINGOCOCCAL (Group B) VACCINE SHARED DECISION-MAKING Aged Out No longer eligible based on patient's age to complete this topic PNEUMOCOCCAL VACCINE Aged Out No long er eligible based on patient's age to complete this topic Care Teams Machine Molder Relationship Specialty Start Date End Date Michelle Irby MD PCP - Pediatrics 03/16/09 Peyton Palumbo MD [address] [address] PCP - General 11/29/21
--- OUTSIDE RECORDS SUMMARY | 2024-10-01 21:14 | XMS_ITS | CONTINUITY OF CARE DOCUMENT ---
Author Name charly parks Address Unknown Organization [facility] Address [address] [place] [address] Phone [phone] Care Team Providers Care Plumber'S Assistant Name Role Phone Oren Boyd MD Unavailable FREDRICK FERRARA MD Unavailable FREDRICK FERRARA MD Unavailable [phone] PROBLEMS Condition Status Date Provider Notes Chest pain active Oren Boyd MD Dizziness active Oren Boyd MD Pericardial effusion active Oren Boyd MD Gastroparesis active Oren Boyd MD ENCOUNTERS Date Type Provider Location Encounter Diag nosis - In-person encounter Office Visit Oren Boyd MD [facility] Pericardial effusionGastroparesis - In-person encounter Office Visit Oren Boyd MD [facility] - In-person encounter Office Visit Oren Boyd MD [facility] - In-person encounter Office Visit Oren Boyd MD [facility] - In-person encounter Office Visit Oren Boyd MD [facility] Chest painDizziness VITAL SIGNS Date Observation Value Provider Body Mass Index (Ratio) 39.60 kg/m2 Sharon Boyd MD blood pressure, diastolic 84 mm[Hg] Ch ristopher Goldvein blood pressure, systolic 122 mm[Hg] Chr istopher Goldvein oxygen saturation, oximetry 98 % Christopher Goldvein respiratory rate E&M 20 /min Gavin pher Goldvein pulse rate 70 /min Jeremi Wayne al weight E&M 238 [lb_av] Jeremi Ferraroy al height E&M 65 [in_i] Jeremi Ferraory al blood pressure, diastolic 84 mm[Hg] Li nkLogic blood pressure, systolic 122 mm[Hg] Ivon kLogic Body Mass Index (Ratio) 29.01 kg/m2 Sharon Boyd MD blood pressure, diastolic 62 mm[Hg] Deja [facility] O'Wood blood pressure, systolic 108 mm[Hg] Cary mendieta O'[place] oxygen saturation, oximetry 95 % Brittany O'Wood respiratory rate E&M 16 /min [facility] O'[facility] pulse rate 72 /min [facility] weight E&M 169 [lb_av] [facility] height E&M 64 [in_i] Brittany O'Wood Body Mass Index (Ratio) 27.98 kg/m2 Sharon Boyd MD blood pressure, cuff size regular Cy ntpenny Juarez blood pressure, diastolic 76 mm[Hg] Cy riley Juarez blood pressure, systolic 116 mm[Hg] Liz sudhir Juarez oxygen saturation, oximetry 98 % Barb Juarez respiratory rate E&M 16 /min Barb Juarez pulse rate 65 /min Barb Elenobel l weight E&M 163 [lb_av] Barb Campbel l height E&M 64 [in_i] Barb Campbel l Body Mass Index (Ratio) 26.96 kg/m2 Sharon Boyd MD blood pressure, cuff size regular Ke prem Ellsworthrobby blood pressure, diastolic 78 mm[Hg] Ke rri Sengrobby blood pressure, systolic 121 mm[Hg] Micah rivers Anai oxygen saturation, oximetry 92 % Lauryn Durantgurmeet respiratory rate E&M 18 /min Lauryn Villeda jianphillrobby pulse rate 68 /min Lauryn Durantchristos cunninghamer weight E&M 162 [lb_av] Lauryn Durantchristos cunninghamer height E&M 65 [in_i] Lauryn Gonzales cunninghamer Body Mass Index (Ratio) 30.78 kg/m2 Sharon Boyd MD blood pressure, cuff size regular Ke prem Ellsworthrobby blood pressure, diastolic 80 mm[Hg] Ke prem Ellsworthrobby blood pressure, systolic 110 mm[Hg] Micah rivers Anai oxygen saturation, oximetry 97 % Lauryn Durantgurmeet respiratory rate E&M 16 /min Lauryn Villeda radhalizethrobby pulse rate 78 /min Lauryn Gonzales cunnignhamer weight E&M 185 [lb_av] Lauryn Ellsworthshannan cunninghamer height E&M 65 [in_i] Lauryn Grchristos cunninghamer ALLERGIES Allergy Name Onset Date Reaction Criticality Status AMOXICILLIN Low Criticality active HISTORY OF MEDICATION USE Medication Status Instructions Dates Provider Indications Com ments pantoprazole 40 mg tablet,delayed release (DR/EC) active Oren Boyd MD Claritin Liqui-Gel 10 mg capsule active Take 1 capsule once a day as needed Barb Juarez RANITIDINE 150 MG TABLET active THEN TAKE 1 TABLET DAILY THEREAFTER Aquiles Enriquez SOCIAL HISTORY Date Observation Value Provider social history E&M S moking History: Caleb rutherford has never smoked. Oren Boyd MD smoking status Never smoker Oren Boyd MD social history reviewed E&M revi ewed - no changes required Oren Boyd MD social history E&M S moking History: Caleb rutherford has never smoked. Oren Boyd MD social history reviewed E&M revi ewed - no changes required Oren Boyd MD smoking status Never smoker Brittany Vicky social history E&M S moking History: Caleb rutherford has never smoked. Oren Boyd MD social history reviewed E&M revi ewed - no changes required Oren Boyd MD smoking status Never smoker Barb Kenzie montoya social history reviewed E&M revi ewed - no changes required Oren Boyd MD smoking status Never smoker Lauryn churchill number of grandchildren Oren Boyd MD U nikolay Boyd MD social history reviewed E&M revi ewed - no changes required Oren Boyd MD smoking status Never smoker Lauryn churchill FAMILY HISTORY Family Member Condition Father Negative FH of Coron devante Artery Disease Mother Negative FH of Coron devante Artery Disease INSURANCE PROVIDERS Payer name Policy type / Coverage type [place] party ID [id number] 1 HEALTHCARE AND FAMILY SERVICES Medicaid 9 [id number] ADVANCE DIRECTIVES Name Date POWER OF MAINTENANCE HELPER TREATMENT PLAN Date Name Performer [id number],C,N oted on CAT scan at [facility] when in ER in November W ill check an echo. Oren Boyd MD [id number],C,Associated wi th eating. Oren Boyd MD [id number],S, Oren Boyd MD Cardiology:Noted on CAT scan at [facility] when in ER in November W ill check an echo. Oren Boyd MD Cardiology:Associated with rene Boyd MD Cardiology Oren Boyd MD Cardiology Oren Boyd MD Cardiology:Improved on ranitidin e. Oren Boyd MD Cardiology Follow up :Will recommend that he take 150 mg ranitidine twice daily. Atypical type of chest pain and thus more likely to be GERD and that is the reason in the change of the dose in the Zantac. Oren Boyd MD Cardiology Follow up Oren batres MD Cardiology Follow up:No recurren ce. Oren Boyd MD Cardiology Follow up :Still symptomatic with frequent episodes of dizziness. Echocardiogram showed normal LV size and systolic function with no valvular or wall motion abnormalities. Carotid doppler shows no significant stenosis. Will check Zio monitor for cardiac arrhythmias. Oren Boyd MD Cardiology New Patie nt :Occasionally has episodes of dizziness and feelings of presyncope. Has not had any episodes of syncope. 1 /6 PB on exam. Will order echo. Oren Boyd MD Date Name Complete Echo ZIO Event Complete Echo HISTORY OF PROCEDURES Procedure Date Procedure Name Provider Procedure Notes S tatus EKG Oren Boyd MD completed ZIO Event Hookup Oren Boyd MD com pleted SNOMED-CT: 283864625 [id number] Current Medications Documented Oren Boyd MD completed SNOMED-CT: 02499123 Physical Exam, Performed: Pulse Exam of Foot Oren Boyd MD completed EKG Oren Boyd MD completed SNOMED-CT: [id number] Current Medications Documented Oren Boyd MD completed
--- OUTSIDE RECORDS SUMMARY | 2024-10-01 21:15 | XMS_ITS | Data Portability ---
Author Organization [place] [facility], Main Office Address [address] [place] [address] Care Team Providers Care Land Reclamation Specialist Name Role Phone SHAD PALUMBODominic Primary Care Provider Assessment Encounter Date Assessment Date Assessment LastModified by Organization Details LastModified Time 03/09/2024 03/09/2024 09/14/2022: CBC/CMP/Lipids/V IT D/TSH: WNL 11/28/2023: Stable labs Not available 03/08/2024 15:41:14 07/23/2024 07/23/2024 Assessment: Rhinitis Severe OSAHS, AHI = 37 PLMD Plan: The following were reviewed and explained to the patient: primary care/referral note [facility] split night sleep study 05/11/14 sleep onset = 13 minutes, AHI = 41, Respironics large Comfort Gel full face mask @ 8/4 cmH2O + 8 breaths/minute [facility] home sleep study 01/11/16 AHI = 39 [facility] home sleep study 12/03/18 AHI = 37, supine AHI = 62 [place] titration sleep study 07/19/22 sleep onset = 4 minutes, REM onset = 342 minutes, Respironics small Wisp nasal mask @ 12 cmH2O, PLMI = 12 Elevation in periodic limb movement index may be contributed by trazodone. Non-pharmacologi c therapy options for periodic limb movement disorder include avoidance of aggravating drugs and substances, mental alerting activities, short daily hemodialysis for patients in renal failure, exercise, leg massage, stretching calf muscles, use of a weighted blanket and applied heat. We will check BUN, Creatinine, Vitamin E, Vitamin B12, RBC folate, Iron, TIBC, Ferritin, ESR, Magnesium, Hgb and Hct levels. PAP compliance downloaded and interpreted x 20 minutes. Data reviewed and explained to the patient. Average apnea/hypopnea index (AHI) is 10.3. Central apnea index is 3.9. Patient used PAP > 4 hours 84% of the time. PAP is set at 12 cmH2O. PAP will be reset at 10-20 cmH2O until repeat sleep studies are done Oxygen supplementation: none Patient is benefiting from PAP therapy. Encouraged patient to maintain PAP use more than 70% of the time. Statement of PAP use and benefits will be sent to the home care store. Educated the patient on problems and solutions associated with positive airway pressure (PAP) use. Difficulty tolerating pressure, mask leaks, intolerance of interface, nasal congestion, claustrophobic response, dry mouth, and unintentional mask removal during sleep were covered. Patient experiences nasal congestion. Patient will use nasal saline spray before starting PAP, use heated PAP humidifier, clean/air dry humidifier reservoir daily, use nasal steroid spray, use ipratropium bromide nasal spray if rhinitis/rhinorr hea is present or obtain an oronasal/oral interface. Provided the patient with a list of local home care stores where positive airway pressure (PAP) units, accoutrement, and services are available. Home care store selection is based on patient's insurance carrier. Patient will setup an appointment with [facility] for supplies and pressure adjustments. A major predictor of success with use of PAP is follow-up with both the respiratory supplier and the treating physician. The download results can show the treating physician information about adherence to treatment, residual AHI while on treatment and presence of large mask leakage. This information is especially helpful if the patient has residual sleepiness despite treatment. General information on sleep disordered breathing, evaluation of sleep disordered breathing, treatment with PAP therapy, and living with PAP therapy were covered. PSG is medically necessary to determine the degree of and management of sleep apnea. Patient will be required to have a negative Sars Cov 2 nucleic acid amplification (RUBY) test prior to PAP titration. 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 Relaxing rituals to rest easy, understanding foods with positive and negative impact on sleep, creating a peaceful sleep environment, timing of exercise, using herbal sleep aids, and practicing sleep-friendly meditation were covered. To determine how much sleep is needed, the patient will assess where he falls on the spectrum, examine what lifestyle factor such as stress is affecting the quality and quantity of sleep. In general, adults need 7-9 hours of sleep. Educated the patient regarding foods that promote sleep. These include but are not limited to cherries, bananas, toast, oatmeal, and warm milk. Educated the patient regarding foods and drinks to avoid before bedtime. These include but are not limited to aged cheese, chocolate, spicy foods, tomato-based sauces, soy, ginseng tea and processed meat. Advocated influenza vaccination annually and pneumonia vaccination FUENTES. Advocated weight loss through diet and exercise. Patient's ideal body weight according to height and gender is up to 140 lbs. Encouraged patient to adjust caloric intake to maintain/achieve ideal body weight, emphasizing on fruits, vegetables, whole grains, and fat-free or low-fat products. These include lean meats, poultry, fish, beans, eggs, and nuts and foods that are low in saturated fats, trans-fats, cholesterol, salt (sodium), and glycemic index. Stressed the importance of regular exercise up to the patient's capacity limits. In this case, we recommend 20 min daily walking, 2 days a week of resistance training. Patient to monitor BP daily and bring records to PCP for further management. Follow-up: 3 weeks Not available 07/23/2024 11:54:20 07/27/2024 07/27/2024 09/14/2022: CBC/CMP/Lipids/V IT D/TSH: WNL 11/28/2023: Stable labs 03/09/2024: Gluc 103 Not available 07/27/2024 12:24:41 08/28/2024 08/28/2024 Assessment: Rhinitis Severe OSAHS, AHI = 37 PLMD Plan: The following were reviewed and explained to the patient: primary care/referral note [facility] split night sleep study 05/11/14 sleep onset = 13 minutes, AHI = 41, Respironics large Comfort Gel full face mask @ 8/4 cmH2O + 8 breaths/minute [facility] home sleep study 01/11/16 AHI = 39 [facility] home sleep study 12/03/18 AHI = 37, supine AHI = 62 [place] titration sleep study 07/19/22 sleep onset = 4 minutes, REM onset = 342 minutes, Respironics small Wisp nasal mask @ 12 cmH2O, PLMI = 12 ESR 08/19/24 21 mm/hr B12 08/19/24 344 pg/mL Elevation in periodic limb movement index may be contributed by trazodone. Non-pharmacologi c therapy options for periodic limb movement disorder include avoidance of aggravating drugs and substances, mental alerting activities, short daily hemodialysis for patients in renal failure, exercise, leg massage, stretching calf muscles, use of a weighted blanket and applied heat. BUN, Creatinine, Vitamin E, RBC folate, Iron, TIBC, Ferritin, Magnesium, Hgb and Hct levels are within normal limits. Patient will take B12 1 mg daily to keep the levels > 400 pg/ml. We will hold off on dopaminergic therapy for now. PAP compliance downloaded and interpreted x 20 minutes. Data reviewed and explained to the patient. Average apnea/hypopnea index (AHI) is 9.4. Central apnea index is 2.5. Patient used PAP > 4 hours 84% of the time. PAP is set at 10-20 cmH2O. PAP will be reset at 11-20 cmH2O until repeat sleep studies are done Oxygen supplementation: none Patient is benefiting from PAP therapy. Encouraged patient to maintain PAP use more than 67% of the time. Statement of PAP use and benefits will be sent to the home care store. Educated the patient on problems and solutions associated with positive airway pressure (PAP) use. Difficulty tolerating pressure, mask leaks, intolerance of interface, nasal congestion, claustrophobic response, dry mouth, and unintentional mask removal during sleep were covered. Patient experiences nasal congestion. Patient will use nasal saline spray before starting PAP, use heated PAP humidifier, clean/air dry humidifier reservoir daily, use nasal steroid spray, use ipratropium bromide nasal spray if rhinitis/rhinorr hea is present or obtain an oronasal/oral interface. Provided the patient with a list of local home care stores where positive airway pressure (PAP) units, accoutrement, and services are available. Home care store selection is based on patient's insurance carrier. Patient will setup an appointment with [facility] for supplies and pressure adjustments. A major predictor of success with use of PAP is follow-up with both the respiratory supplier and the treating physician. The download results can show the treating physician information about adherence to treatment, residual AHI while on treatment and presence of large mask leakage. This information is especially helpful if the patient has residual sleepiness despite treatment. General information on sleep disordered breathing, evaluation of sleep disordered breathing, treatment with PAP therapy, and living with PAP therapy were covered. PSG is medically necessary to determine the degree of and management of sleep apnea. 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 Relaxing rituals to rest easy, understanding foods with positive and negative impact on sleep, creating a peaceful sleep environment, timing of exercise, using herbal sleep aids, and practicing sleep-friendly meditation were covered. To determine how much sleep is needed, the patient will assess where he falls on the spectrum, examine what lifestyle factor such as stress is affecting the quality and quantity of sleep. In general, adults need 7-9 hours of sleep. Educated the patient regarding foods that promote sleep. These include but are not limited to cherries, bananas, toast, oatmeal, and warm milk. Educated the patient regarding foods and drinks to avoid before bedtime. These include but are not limited to aged cheese, chocolate, spicy foods, tomato-based sauces, soy, ginseng tea and processed meat. Advocated influenza vaccination annually and pneumonia vaccination FUENTES. Advocated weight loss through diet and exercise. Patient's ideal body weight according to height and gender is up to 140 lbs. Encouraged patient to adjust caloric intake to maintain/achieve ideal body weight, emphasizing on fruits, vegetables, whole grains, and fat-free or low-fat products. These include lean meats, poultry, fish, beans, eggs, and nuts and foods that are low in saturated fats, trans-fats, cholesterol, salt (sodium), and glycemic index. Stressed the importance of regular exercise up to the patient's capacity limits. In this case, we recommend 20 min daily walking, 2 days a week of resistance training. Patient to monitor BP daily and bring records to PCP for further management. Follow-up: 1 week after titration sleep study Not available 09/30/2024 14:41:21 Plan of Treatment Reminders Order Date Submit Date Provider Last Modified By Organization Details Last Modified Time Details Appointments Follow Up 15 2024 01:15P Italo gardiner MD Not available Not available Not available Lab CBC w/ auto diff 2024 025 NEVIN [facility], [address], [place], [address], 07/27/2024 12:27:16 lipid panel, serum 2024 025 NEVIN [facility], [address], [place], [address], 07/27/2024 12:27:17 CMP, serum or plasma 2024 025 NEVIN [facility], [address], [place], [address], 07/27/2024 12:27:17 TSH + free T4, serum 2024 025 NEVIN [facility], [address], [place], [address], 07/27/2024 12:27:15 vitamin D, 25-hydrox y, total, serum 2024 025 NEVIN [facility], [address], [place], [address], 07/27/2024 12:27:15 iron + TIBC + ferritin, serum 2024 025 [email or web address] [facility], [address], [place], [address], 08/26/2024 08:35:23 folate, RBC 2024 025 [facility] [address], [place], [address], 08/26/2024 08:35:23 vitamin B12, serum 2024 025 [facility], [address], [place], [address], 08/26/2024 08:35:23 ESR (erythroc yte sedimenta tion rate), blood 2024 025 [facility], [address], [place], [address], 08/26/2024 08:35:23 hemoglobi n + hematocri t, blood 2024 025 [facility], [address], [place], [address], 08/26/2024 08:35:23 bun (blood urea nitrogen) , serum or plasma 2024 025 [facility], [address], [place], [address], 08/26/2024 08:35:23 creatinin e, serum or plasma 2024 025 [facility], [address], [place], [address], 08/26/2024 08:35:23 magnesium , serum or plasma 2024 025 [facility], [address], [place], [address], 08/26/2024 08:35:23 vitamin E, serum 2024 025 [email or web address] [facility], [address], [place], [address], 08/26/2024 08:35:24 CBC w/ auto diff 2023 024 NEVIN [facility], [address], [place], [address], 03/10/2024 08:53:51 lipid panel, serum 2023 024 [place] [address] [facility], [address], [place], [address], 09/08/2024 11:14:31 CMP, serum or plasma 2023 024 [place] [address] [facility], [address], [place], [address], 09/08/2024 11:14:32 TSH + free T4, serum 2023 024 [place] [address] [facility], [address], [place], [address], 09/08/2024 11:14:32 vitamin D, 25-hydrox y, total, serum 2023 024 [place] [address] [facility], [address], [place], [address], 09/08/2024 11:14:31 Referral pulmonolo gist referral 2024 025 [email or web address] Hiram Schneider MD, [address] [place], [address], 07/28/2024 14:43:30 cardiolog ist referral - Please call patient to schedule an appointme nt. Thank you. 2024 025 [place], [address] [address], [address], [place], [address], 08/25/2024 16:09:23 podiatris t referral - Please call patient to schedule an appointme nt. Thank you. 2024 025 seth Wells DPM, [address] [facility], [address], [place], [address], 08/25/2024 16:09:35 pulmonolo gist referral 2023 024 [email or web address] Hiram Schneider MD, [address] [place], [address], 04/08/2024 08:11:26 cardiolog ist referral 2023 024 [email or web address] [place], [address] [facility], [address], [place], [address], 04/08/2024 08:11:37 podiatris t referral 2023 024 mohan Wells DPM, [address] [facility], [address], [place], [address], 04/08/2024 08:11:46 Procedures None recorded. Surgeries None recorded. Imaging polysomno gram, titration study - Please call patient to schedule. [address], [address] [place], [address], 09/01/2024 14:52:31 polysomno gram, titration study - Please call patient to schedule. [address] [facility], [address] [place], [address], 08/24/2024 15:25:46 roque ARTHUR 2023 024 [facility] ([facility]), [address] [place], [address], 03/10/2024 17:05:59 Medication Orders cyanocoba jennie (vit B-12) 1,000 mcg tablet 2024 025 [facility] [address] [place], [address], 08/28/2024 10:01:10 pantopraz ole 40 mg tablet,de layed release 2024 025 [email or web address] [address] [place], [address], 07/27/2024 12:40:15 levofloxa yenifer 750 mg tablet 2024 025 [address] [place], [address], 08/14/2024 15:29:05 benzonata te 100 mg capsule 2024 025 [address] [place], [address], 08/14/2024 15:28:59 pantopraz ole 40 mg tablet,de layed release 2023 024 [facility] [address] [place], [address], 03/09/2024 15:49:32 ciproflox acin 500 mg tablet 2023 024 [address] [place], [address], 06/30/2024 17:00:25 Patient TargetsNo targets recorded. Patient InstructionsNo instructions recorded. Reason for Referral Ring Barker Operator Referral for Pe ricardial effusion Referring Physician: Peyton Palumbo, Internal Medicine, Encounter Date: 03/09/2024 Mailroom Manager Referral for Pain in both feet Referring Physician: Peyton Palumbo Internal Medicine, Encounter Date: 03/09/2024 Bryologist Referral for O bstructive sleep apnea syndrome Referring Physician: Peyton Palumbo, Internal Medicine, Encounter Date: 03/09/2024 Ring Barker Operator Referral for Pe ricardial effusion Please call patient to schedule an appointment. Thank you. Referring Physician: Peyton Palumbo, Internal Medicine, Encounter Date: 07/27/2024 Mailroom Manager Referral for Pain in both feet Please call patient to schedule an appointment. Thank you. Referring Physician: Peyton Palumbo, Internal Medicine, Encounter Date: 07/27/2024 Bryologist Referral for O bstructive sleep apnea syndrome Referring Physician: Peyton Palumbo, Internal Medicine, Encounter Date: 07/27/2024 Results Created Date Observation Date Name Description Value Unit Range Abnormal Flag Note LastModifiedBy Organization Detail LastModifiedTime 03/10/20 24 03/10/2024 , cyndee [facility] [address] [address] Patien t Name: ORQUIDEA VELIZ Access ion #: [id number] Sex: M : 1990 8 Dictat ed By: Niall rodriguez Castillo Attend ing Physic fransisca: SHAD MADSEN Ordercaesar camp Physic fransisca: SHAD MADSEN Exam Date: 2023 12:01 PM Exam Name: SCROTU M Admitt ing Diagno sis(es ): 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 INDICA TION: Pain, swelli ng. COMPAR EL: None TECHNI QUE: Multip le real-t isrrael graysc jimy sonogr aphic and color and duplex Dopple r images of the scrotu m and its conten ts were obtain ed. FINDIN GS: The right testic le measur es 3.9 x 3.2 x 1.9 cm. The left testic le measur es 3.2 x 2.7 x 1.4 cm. Bilate ral testic ular microl ithias is. No focal lesion s. The right epidid ymis measur es 4.4 cm. The left epidid ymis measur es 3.2 cm. Edemat ous and enlarg ed appear ance to the right epidid ymis. Subseq uent color and duplex Dopple r interr ogatio n of the testes demons trated vascul ar flow to both testic les. Asymme tric increa sed vascul arity to the right epidid ymis and right testic le. IMPRES STEPHANIE: 1. Findin gs are suspic ious for right epidid ymitis and orchit is. Electr onical ly Signed by: Niall Castillo at 2023 16:03: 51 PM Page 1 INTERFACE [facility] ([facility]) [address] [place], [address], 03/10/2024 17:05:59 07/03/19 25 01/11/2016 home sleep study No observ ation record ed. BARCODE Not Available 2024 17:36:52 07/03/19 25 12/03/2018 home sleep study No observ ation record ed. BARCODE Not Available 2024 17:36:52 07/17/19 25 01/11/2016 home sleep study No observ ation record ed. BARCODE Not Available 2024 12:11:29 07/17/19 25 12/03/2018 home sleep study No observ ation record ed. BARCODE Not Available 2024 12:11:31 07/20/19 25 05/11/2014 polys omnog adam, diagn ostic , 6 yrs or older No observ ation record ed. BARCODE Not Available 2024 13:39:07 Result Notes None recorded. Problems Name Problem SNOMED Code Status Onset Date Resolution Date Notes Provider Name and Address Organization Details Recorded Time Congenital pes cavus of right foot 0882530746830 9101 Active 2021 Not Available [facility] 3 12:33:15 Gastroesop hageal reflux disease 207606657 Active Not Available [facility] 3 12:33:15 Vitamin D deficiency 85626021 Active 2021 Not Available [facility] 3 12:33:15 Complete trisomy 21 syndrome 66621206 Active Not Available [facility] 3 12:33:15 Hyperlipid emia 34882580 Active 2021 Not Available [facility] 3 12:33:15 Allergic rhinitis 77295375 Active Not Available [facility] 3 12:33:15 Obstructiv e sleep apnea syndrome 92626290 Active Not Available [facility] 3 12:33:15 Acid reflux 458934336 Active 2022 Not Available [facility] 3 12:33:15 COVID-19 696453769 Active 2022 Not Available [facility] 3 12:33:15 Equinus contractur e of the ankle 351225855 Active 2022 Not Available [facility] 3 12:33:15 Congenital pes planus 09999918 Active 2022 Not Available [facility] 3 12:33:15 Gout 42964257 Active 2023 Clotilde Barrera MA null, [employer] 4 16:22:22 Essential hypertensi on 34898042 Active 2023 Aquiles Wells DPM [address], [address], [place], [address] , [employer] [facility] GVIS[facility] 1 [facility] 4 09:45:20 Obesity 300442719 Active 2023 Clotilde Barrera MA null, [employer] [facility] 4 10:29:29 Anxiety 72017092 Active 2023 Peyton rodriguez MD [address], [address], [place], [address] , [employer] [facility] 1 [facility] 4 16:42:14 Autosomal recessive spastic paraplegia type 11 583751424 Active 2024 Hiram Schneider MD [address], [address], [place], [address] , [employer] [facility] 1 [facility] 5 10:49:42 Periodic limb movement disorder 172294740 Active 2024 Hiram Schneider MD [address] [facility] [place] [address], [place], [address] , [facility] [employer] 5 11:22:42 Right inguinal hernia 352556684 Active 2024 Peyton rodriguez MD [address] [facility] [address] [place] [address], [place], [address] , [facility] Preventice [facility] M[facility]X [facility] 5 12:22:30 Orchitis and epididymit is 333594376 Active 2024 Peyton rodriguez MD [address] [facility] [place] [address], [place], [address] , [facility] Preventice [facility] M[facility]SIX [facility] 5 12:22:30 Cough 91279558 Active 2024 Fara Ordonez, [facility], [place] [employer] [facility] 1 [facility] 5 16:04:32 Vitamin B12 deficiency (non anemic) 90649356 Active 2024 Hiram Schneider MD [address] [facility], [place] [address], [place], [address] , [employer] [facility] 1 [facility] 5 09:53:44 Notes:Medical History: Triso my 23 Anxiety Myopia COVID infections 06/2022, 03/2024 Rhinitis with postnasal drip Bruxism Obesity with severe OSAHS, AHI = 37, on CPAP c/o IVRC Mild AR/TR PASP 30 mmHg EF 65% Hyperlipidemia Hepatic steatosis Hiatal hernia with KAYA Umbilical hernia Diarrhea-predominant IBS Right epididymitis and orchitis Vit D deficiency Lumbar spondylosis Gout Right flexor hallucis longus, tibialis posterior, and peroneus longus tenosynovitis Right ankle equinus contracture Right 1st metatarsal OA Right pes cavus Bilateral pes planus Procedure History: T&A 2000 Right inguinal herniorrhaphies 2008, 2022 Cholecystectomy 2019 Occupational History: Disabled Problem Notes None recorded. Procedures Surgical History Date Name Laterality Status Provider Name and Address Organization Details Recorded Time 02/29/20 22 Hernia Surgery completed Not Available [facility] 08/22/2022 01:05:40 08/23/19 21 Biopsy completed Not Available [facility] 08/22/2022 01:05:40 07/16/19 18 Laparoscopic cholecystectomy completed Not Available [facility] 08/22/2022 01:05:40 Tonsillectomy completed Not Available [facility] 08/22/2022 01:05:40 Hernia Repair completed Not Available [facility] 08/22/2022 01:05:40 Imaging Results Imaging Date Name Status LastModified by Organiz ation Details LastModified Time 03/10/2024 US, scrotum active INTERFACE [place] [facility] (Imaging) [address] [place], [address], 03/10/2024 17:05:59 01/11/2016 home sleep study completed [facility] Information not available 07/03/2024 17:36:52 12/03/2018 home sleep study completed [facility] Information not available 07/03/2024 17:36:52 01/11/2016 home sleep study completed [facility] Information not available 07/17/2024 12:11:29 12/03/2018 home sleep study completed [facility] Information not available 07/17/2024 12:11:31 05/11/2014 polysomnogra m, diagnostic, 6 yrs or older completed [facility] Information not available 07/20/2024 13:39:07 Procedure Notes None recorded. Medical Equipment None Reported. Allergies Allergen ID Allergen Name Allergen Category Reaction Reaction Severity Criticality Documentation Date Start Date Code Code System Note Provider Name and Address Organization Details Recorded Time 2792 amoxicill in medicatio n Not available Not available Not available 08/22/2022 723 RxNorm child de jesus aller gy Not Available [facility] 01:38:40 Medications Name Sig Start Date Stop Date Status Note LastModified by Organization Details LastModified Time doxycycline hyclate 100 mg capsule TAKE 1 CAPSULE BY MOUTH TWICE A DAY FOR 7 DAYS 12/26 completed Not Available Not Available Not Available clindamycin HCl 300 mg capsule TAKE 1 CAPSULE BY MOUTH THREE TIMES A DAY FOR 10 DAYS 07/23 completed Not Available Not Available Not Available trazodone 50 mg tablet TAKE 1 TO 2 TABLETS BY MOUTH EVERY DAY NEEDED active Not Available Not Available No t Available azithromyci n 250 mg tablet as directed 08/28 completed Not Available Not Available Not Available ibuprofen 800 mg tablet 07/27 completed Not Available Not Available Not Available hydrocodone 5 mg-acetamin ophen 325 mg tablet TAKE 1 TABLET EVERY 6-8 HOURS BY ORAL ROUTE DIRECTED. 10/28 completed Not Available Not Available Not Available Claritin 10 mg tablet Take 1 tablet every day by oral route as needed for 90 days. 10/09 completed Not Available Not Available Not Available cyanocobala min (vit B-12) 1,000 mcg tablet TAKE 1 TABLET BY MOUTH EVERY DAY active Not Available Not Available No t Available ciprofloxac in 500 mg tablet TAKE 1 TABLET BY MOUTH EVERY 12 HOURS FOR 7 DAYS 06/30 completed Not Available Not Available Not Available sulfamethox azole 800 mg-trimetho prim 160 mg tablet TAKE 1 TABLET BY MOUTH EVERY 12 HOURS 03/14 completed Not Available Not Available Not Available omeprazole 40 mg capsule,del ayed release TAKE ONE CAPSULE BY MOUTH EVERY DAY 02/02 completed Not Available Not Available Not Available acyclovir 800 mg tablet active Not Available Not Available Not Available oxycodone-a cetaminophe n 5 mg-325 mg tablet TAKE 1 TABLET BY MOUTH EVERY 4 TO 6 HOURS NEEDED 07/23 completed Not Available Not Available Not Available famotidine 20 mg tablet Take 1 tablet twice a day by oral route. 02/11 completed Not Available Not Available Not Available metoclopram harry 5 mg tablet TAKE 1 TABLET BY MOUTH THREE TIMES A DAY active Not Available Not Available No t Available benzonatate 100 mg capsule TAKE 1 CAPSULE BY MOUTH THREE TIMES A DAY NEEDED FOR 7 DAYS 08/14 completed Not Available Not Available Not Available cephalexin 500 mg capsule TAKE 1 CAPSULE BY MOUTH THREE TIMES A DAY FOR 10 DAYS 05/21 completed Not Available Not Available Not Available pantoprazol e 40 mg tablet,chhaya yed release Take 1 tablet every day by oral route as needed for 90 days. active Not Available Not Available No t Available ranitidine 150 mg tablet TAKE 1 TABLET BY MOUTH TWICE DAILY FOR 30 DAYS, THEN TAKE 1 TABLET DAILY THEREAFTE R 02/02 completed Not Available Not Available Not Available omeprazole 20 mg capsule,del ayed release TAKE 1 CAPSULE BY MOUTH TWICE A DAY 12/26 completed Not Available Not Available Not Available diclofenac sodium 75 mg tablet,chhaya yed release TAKE 1 TABLET TWICE A DAY BY ORAL ROUTE WITH MEAL(S). 03/09 completed Not Available Not Available Not Available montelukast 10 mg tablet TAKE 1 TABLET BY MOUTH EVERYDAY AT BEDTIME 03/09 completed Not Available Not Available Not Available mupirocin 2 % topical ointment 09/05 completed Not Available Not Available Not Available ergocalcife rol (vitamin D2) 1,250 mcg (50,000 unit) capsule TAKE 1 CAPSULE BY MOUTH ONE TIME PER WEEK 07/23 completed Not Available Not Available Not Available levofloxaci n 750 mg tablet TAKE 1 TABLET BY MOUTH EVERY DAY FOR 7 DAYS 08/14 completed Not Available Not Available Not Available methylpredn isolone 4 mg tablets in a dose pack TAKE 6 TABLETS ON DAY 1 DIRECTED ON PACKAGE AND DECREASE BY 1 TAB EACH DAY FOR A TOTAL OF 6 DAYS 12/01 completed Not Available Not Available Not Available albuterol sulfate HFA 90 mcg/actuati on aerosol inhaler INHALE 2 PUFFS EVERY 4 HOURS BY INHALATIO N ROUTE NEEDED FOR 90 DAYS. active Not Available Not Available No t Available ondansetron 4 mg disintegrat ing tablet TAKE 1 TABLET BY MOUTH UP TO TWICE DAILY PRN active Not Available Not Available No t Available fluticasone propionate 50 mcg/actuati on nasal spray,suspe nsion INSTILL 1 SPRAY IN EACH NOSTRIL DAILY active Not Available Not Available No t Available dicyclomine 10 mg capsule TAKE 1 CAPSULE BY MOUTH THREE TIMES A DAY 07/23 completed Not Available Not Available Not Available naproxen 500 mg tablet TAKE 1 TABLET BY MOUTH TWICE A DAY FOR 7 DAYS active Not Available Not Available No t Available neomycin-po lymyxin-hyd rocort 3.5 mg-10,000 unit/mL-1 % ear drops,susp INSTILL 4 DROPS INTO AFFECTED EAR(S) BY OTIC ROUTE 3 TIMES PER DAY for 5-7 days active Not Available Not Available No t Available cholestyram ine (with sugar) 4 gram oral powder USE 4 GRAMS ONCE DAILY WITH A MEAL, AVOID OTHER MEDS WITHIN 1HR BEFORE OR 4 6 HRS AFTER DOSE 09/09 completed Not Available Not Available Not Available rosuvastati n 20 mg tablet TAKE 1 TABLET BY MOUTH EVERY DAY active Not Available Not Available No t Available fluticasone propionate 2 puffs each nostril as needed 09/05 completed Not Available Not Available Not Available fiber 06/30 completed Not Available Not Available Not Available multivitami n 06/30 completed Not Available Not Available Not Available Afluria Qd 2018- (36 mos up)(PF)60 mcg (15 mcg x4)/0.5 mL IM syringe ADM 0.5ML IM UTD 02/02 completed Not Available Not Available Not Available Flublok Quad (PF) 180 mcg (45 mcg x 4)/0.5 mL IM syringe PHARMACY ADMINISTE [facility] 08/25 completed Not Available Not Available Not Available Paxlovid 300 mg (150 mg x 2)-100 mg tablets in a dose pack TAKE 3 TABLETS BY MOUTH TWICE A DAY FOR 5 DAYS 06/30 completed Not Available Not Available Not Available Paxlovid 150 mg-100 mg tablets in a dose pack (Renal Dose) FOLLOW PACKAGE DIRECTION S 09/18 completed Not Available Not Available Not Available Vitals Date Recorded Body height Body mass index (BMI) Body weight Body temperature Heart rate Systolic blood pressure Diastolic blood pressure Provider Name and Address Organization Details Last Updated DateTime 4 162.56 cm 34 kg/m2 94595.2 9 g 97.7 [degF] 72 /min 110 mm[Hg] 70 mm[Hg] ORALIA Villaseñor [facility] 4 12:04:02 Date Recorded Body height Body mass index (BMI) Body weight Body temperature Heart rate Respiratory rate Oxygen saturation Oxygen saturation in Arterial blood by Pulse oximetry Pain severity - 0-10 verbal numeric rating [Score] - Reported Systolic blood pressure Diastolic blood pressure Provider Name and Address Organization Details Last Updated DateTime 4 162.56 cm 33 kg/m2 43028.5 3 g 98.4 [degF] 74 /min 16 /min 97 % 97 % 0 118 mm[Hg] 62 mm[Hg] Darío Sommers LPN [facility] 4 15:18:47 Date Recorded Body height Body mass index (BMI) Body weight Body temperature Heart rate Oxygen saturation Oxygen saturation in Arterial blood by Pulse oximetry Systolic blood pressure Diastolic blood pressure Provider Name and Address Organization Details Last Updated DateTime 5 162.56 cm 30.9 kg/m2 76157.6 3 g 97.6 [degF] 63 /min 95 % 95 % 108 mm[Hg] 68 mm[Hg] Kassi Mcnair MA [facility] [employer] [facility] City Notes 5 10:44:47 Date Recorded Heart rate Respiratory rate Provider N judi and Address Organization Details Last Updated DateTime 07/23/2024 63 /min 15 /min Hiram Schneider MD [address], [place], [address] [employer] [facility] City Notes 07/23/2024 11:08:59 Date Recorded Body height Body mass index (BMI) Body weight Body temperature Heart rate Systolic blood pressure Diastolic blood pressure Provider Name and Address Organization Details Last Updated DateTime 162.56 cm 29.9 kg/m2 04840.0 7 g 97.6 [degF] 66 /min 122 mm[Hg] 80 mm[Hg] Fara Ordonez Dominic [facility] City Notes 12:08:44 Date Recorded Body height Body mass index (BMI) Body weight Body temperature Heart rate Oxygen saturation Oxygen saturation in Arterial blood by Pulse oximetry Systolic blood pressure Diastolic blood pressure Provider Name and Address Organization Details Last Updated DateTime 5 162.56 cm 29.9 kg/m2 88486.0 7 g 98.1 [degF] 68 /min 98 % 98 % 110 mm[Hg] 68 mm[Hg] Kassi Mcnair MA [facility] City Notes 5 09:37:46 Date Recorded Heart rate Respiratory rate Provider N judi and Address Organization Details Last Updated DateTime 08/28/2024 68 /min 14 /min Hiram Schneider MD [address], [place], [address] [employer] [facility] City Notes 08/28/2024 09:51:42 Social History Question Answer Notes LastModified by Organizat ion Details LastModified Time Tobacco Smoking Status Never Smoker Not Available [facility] 08/22/2022 01:01:46 Do You Have An Advance Directive? No [id number] Information not available 08/22/2022 What Is Your Level Of Alcohol Consumption? None [id number] Information not available 08/22/2022 What Is Your Level Of Caffeine Consumption? Moderate [id number] Information not available 08/22/2022 How Much Tobacco Do You Chew? None [id number] Information not available 08/22/2022 In The 14 Days Before Symptom Onset, Have You Had Close Contact With A Laboratory-confi rmed COVID-19 While That Case Was Ill? No [id number] Information not available 08/22/2022 In The 14 Days Before Symptom Onset, Have You Had Close Contact With A Person Who Is Under Investigation For COVID-19 While That Person Was Ill? No [id number] Information not available 08/22/2022 Are You Currently Employed? No Information not available 12/02/2023 What Type Of Diet Are You Following? REGULAR [id number] Information not available 08/22/2022 Which Illicit Or Recreational Drugs Have You Used? NONE [id number] Information not available 08/22/2022 Do You Have An Electrostatic Air Filter? No Information not available 07/23/2024 Have There Been Any Changes To Your Family Or Social Situation? No [id number].[id number] Information not available 08/22/2022 Do You Have A Humidifier? No Information not available 07/23/2024 Do You Use Insect Repellent Routinely? No Information not available 12/02/2023 Where Do You Live? [facility] Information not available 12/02/2023 Do You Have A Medical Power Of Plumber? No [id number] Information not available 08/22/2022 Do You Have Moisture Problems In Your Home? No Information not available 07/23/2024 What Was The Date Of Your Most Recent Tobacco Screening? 08/28/2024 Information not available 08/28/2024 Do You Have Any Pets? Yes Three Dogs [id number] Information not available 08/22/2022 What Is Your Relationship Status? Single [id number] Information not available 08/22/2022 Do You Use Your Seat Belt Or Car Seat Routinely? Yes Information not available 12/02/2023 Do You Have Smoke And Carbon Monoxide Detectors In Your Home? Yes Information not available 12/02/2023 Are You Passively Exposed To Smoke? No Information not available 12/02/2023 Are There Any Smokers In Your House? No Information not available 12/02/2023 How Much Tobacco Do You Smoke? No [id number] Information not available 08/22/2022 Do You Feel Stressed (tense, Restless, Nervous, Or Anxious, Or Unable To Sleep At Night)? [id number] Information not available 08/22/2022 Do You Use Any Illicit Or Recreational Drugs? No MIGRATION.[id number] Information not available 08/22/2022 Do You Use Sunscreen Routinely? No Information not available 12/02/2023 Has Tobacco Cessation Counseling Been Provided? No N/a MIGRATION.[id number] Information not available 08/22/2022 How Many Years Have You Smoked Tobacco? 0 MIGRATION.[id number] Information not available 08/22/2022 Have You Recently Traveled Abroad? No MIGRATION.[id number] Information not available 08/22/2022 Do You Have Any Dietary Restrictions? No MIGRATION.[id number] Information not available 08/22/2022 Do You Or Have You Ever Used Any Other Forms Of Tobacco Or Nicotine? No MIGRATION.[id number] Information not available 08/22/2022 Sex: Male Functional Status Question Answer Note LastModified by Organizat ion Details LastModified Time What is your exercise level? None [id number] Information not available 08/22/2022 Mental Status None recorded. Family History Relationship Description Onset Age of this Age Resolved Age Notes LastModified by Organization Details LastModified Time Father Diabetes mellitus [id number] Not available 08/22/2022 01:05:43 Father Hypertensive disorder [id number] Not available 08/22/2022 01:05:43 Paternal Grandmother Diabetes mellitus [id number] Not available 08/22/2022 01:05:43 Paternal Grandmother Alzheimer's disease [email or web address] Not available 08/2024 11:26:14 Maternal Grandmother Diabetes mellitus [id number] Not available 08/22/2022 01:05:43 Maternal Grandmother Malignant melanoma [email or web address] Not available 08/2024 11:26:14 Maternal Grandfather Heart disease [id number] Not available 08/22/2022 01:05:43 Mother Hypertensive disorder [email or web address] Not available 2024 17:18:34 Father Obstructive sleep apnea syndrome [email or web address] Not available 08/2024 11:26:14 Father Hyperlipidem ia [email or web address] Not available 08/2024 11:26:14 Father Cobalamin deficiency [email or web address] Not available 11:26:14 Father Vitamin D deficiency [email or web address] Not available 11:26:14 Medical History Condition Response NERVE DISEASE N BLINDNESS N RHEUMATIC FEVER N KIDNEY STONES N BLADDER PROBLEMS N MRSA N OTHER # 1 Y POLIO N LUNG DISEASE/DISORDER N COPD N RADIATION / CHEMOTHERAPY N Other # 2 N BLOOD DISEASES N EAR OR HEARING PROBLEMS N MUMPS N DEPRESSION (INCLUDING POST ) N BOWEL PROBLEMS N STROKE/TIA N ULCERS N BENIGN PROSTATIC HYPERPLASIA N MEASLES N MYOCARDIAL INFARCTION N OBESITY N GERD/NAUSEA N ANEURYSM N URINARY/BLADDER/KIDNEY PROBLEMS N CORONARY ARTERY DISEASE (CAD) N ADDICTION CONCERNS N Impotence N ENDOMETRIOSIS N USE OF BLOOD THINNERS N SKIN PROBLEMS N GASTROINTESTINAL DISORDER N PERIPHERAL VASCULAR DISEASE N MUSCLE,JOINT OR BONE PROBLEMS N GASTROINTESTINAL BLEEDING N BLOOD CLOTS N ASTHMA N CATARACTS N ERECTILE DYSFUNCTION N VARICOSITIES N GI PROBLEMS N Low Testosterone N INFERTILITY N AIDS/HIV N CHEMOTHERAPY / RADIATION N LIVER DISEASE N MALE HYPOGONADISM N HYPERTENSION N Deficiency Y TOURETTE'S N ANXIETY DISORDER N BLOOD TRANSFUSION N ANEMIA/BLOOD DISORDER N CHRONIC EAR INFECTIONS N BRONCHITIS N TUBERCULOSIS N GLAUCOMA N FOOT PROBLEM N DIVERTICULITIS N CHICKENPOX N SLEEP APNEA Y INFECTIOUS DISEASE N HEART ARRHYTHMIA N PROSTATE N INSOMNIA N HIGH CHOLESTEROL / HYPERLIPIDEMIA Y EYE PROBLEMS N HYPERTHYROIDISM N EDEMA N CHRONIC PAIN SYNDROME N HYPOTHYROIDISM N CAROTID BLOCKAGE N CONSTIPATION N BACK / NECK PROBLEMS N ATHEROSCLEROSIS N BREAST PROBLEMS N DIALYSIS N ECZEMA N OSTEOPOROSIS N ARTHRITIS N APPENDICITIS N DIABETES, TYPE N BAD TEETH N ENT N HEARTBURN / REFLUX Y AUTISM SPECTRUM DISORDER (ASD) N HEPATITIS / LIVER DISEASE N GOUT N SLEEP DISORDER N ALZHEIMER'S DISEASE N Brain Problems N HERPES N DEMENTIA N SEIZURES/EPILEPSY N HEADACHES/MIGRAINES N VASCULAR DISEASE N PACEMAKER N Blood Disorder N DIZZINESS Y KIDNEY DISEASE N HEART DISEASE/HEART PROBLEMS N MULTIPLE SCLEROSIS N CARDIAC ARRHYTHMIA N CANCER: SPECIFY N Gall Stones N ATRIAL FIBRILLATION N PULMONARY EMBOLISM N AUTOIMMUNE DISEASE N Immunizations Vaccine Type Date Status Note Provider Nam e and Address Organization Details Recorded Time Influenza, split virus, quadrivalent, PF 3 completed Fara Mery, RMA null, [place] [facility] 07/02/2023 12:55:33 Influenza, split virus, quadrivalent, preservative 9 completed Fara [place], RMA null, [place] - [facility] 12/25/2023 10:08:26 Influenza, recombinant, quadrivalent, PF 0 completed Fara Mery, RMA null, [place] - [facility] 12/25/2023 10:08:26 Influenza, split virus, trivalent, preservative 2 completed Fara Houston, RMA null, [place] - [facility] 12/25/2023 10:08:27 Influenza, split virus, quadrivalent, PF 7 completed Fara Mery, RMA null, [facility] 12/25/2023 10:08:27 Hep B, adolescent or pediatric 9 completed Not Available [facility] 04/01/2023 05:35:25 Hep B, adolescent or pediatric 9 completed Not Available [facility] 04/01/2023 05:35:25 Hep B, adolescent or pediatric 8 completed Not Available [facility] 04/01/2023 05:35:25 TST-PPD intradermal 8 completed Not Available [facility] 04/01/2023 05:35:25 varicella 7 completed Not Available [facility] 04/01/2023 05:35:25 DTaP 7 completed Not Available [facility] 04/01/2023 05:35:25 MMR 7 completed Not Available [facility] 04/01/2023 05:35:24 polio, unspecified formulation 7 completed Not Available [facility] 04/01/2023 05:35:25 DTaP 5 completed Not Available [facility] 04/01/2023 05:35:25 Hib, unspecified formulation 5 completed Not Available [facility] 04/01/2023 05:35:24 polio, unspecified formulation 5 completed Not Available [facility] 04/01/2023 05:35:25 influenza, unspecified formulation 4 completed Not Available [facility] 04/01/2023 05:35:24 MMR 4 completed Not Available [facility] 04/01/2023 05:35:24 DTaP 3 completed Not Available [facility] 04/01/2023 05:35:25 Hib, unspecified formulation 3 completed Not Available [facility] 04/01/2023 05:35:24 DTaP 3 completed Not Available [facility] 04/01/2023 05:35:25 Hib, unspecified formulation 3 completed Not Available [facility] 04/01/2023 05:35:24 polio, unspecified formulation 3 completed Not Available [facility] 04/01/2023 05:35:25 DTaP 3 completed Not Available [facility] 04/01/2023 05:35:25 Hib, unspecified formulation 3 completed Not Available [facility] 04/01/2023 05:35:24 polio, unspecified formulation 3 completed Not Available [facility] 04/01/2023 05:35:25 Influenza, split virus, quadrivalent, preservative 0 completed Not Available [facility] 04/01/2023 05:35:24 influenza, unspecified formulation 9 completed Not Available [facility] 04/01/2023 05:35:24 meningococcal MCV4, unspecified formulation 9 completed Not Available [facility] 04/01/2023 05:35:25 varicella 9 completed Not Available [facility] 04/01/2023 05:35:25 Hep A, pediatric, unspecified formulation 8 completed Not Available [facility] 04/01/2023 05:35:25 influenza, unspecified formulation 8 completed Not Available [facility] 04/01/2023 05:35:24 Hep A, pediatric, unspecified formulation 7 completed Not Available [facility] 04/01/2023 05:35:25 influenza, unspecified formulation 7 completed Not Available [facility] 04/01/2023 05:35:24 Tdap 7 completed Not Available [facility] 04/01/2023 05:35:24 influenza, unspecified formulation 4 completed Not Available [facility] 04/01/2023 05:35:24 TST-PPD intradermal 3 completed Not Available [facility] 04/01/2023 05:35:25 Tdap 9 completed Not Available [facility] 04/01/2023 05:35:24 Influenza, split virus, quadrivalent, PF 7 completed Fara Ordonez RMA null, [place] [facility] 12/25/2023 10:08:27 Influenza, split virus, quadrivalent, PF 9 completed Fara Ordonez RMA null, [place] [facility] 12/25/2023 10:08:27 Past Encounters Encounter ID Performer Location Encounter Start Date Encounter Closed Date Diagnosis/Indication Diagnosis SNOMED-CT Code Diagnosis ICD10 Code Diagnosis Note [id number] [facility] Internal Med [facility] [address] [facility] 15 [place] [address] 08/25/2020 00:00:00 08/25/2020 17:54:25 [id number] [facility] Pulmonolo gy [place] [address] [place] [address] 09/07/2020 00:00:00 09/07/2020 17:01:28 [id number] [facility] Pulmonolo [facility] [place] [address] [place] [address] 01/25/2021 00:00:00 01/25/2021 13:38:44 [id number] [facility] Internal Med [facility] [address] [facility] [address] [address] 02/21/2021 00:00:00 03/22/2021 13:40:01 [id number] [facility] Internal Med [facility] [address] [address] 09/05/2021 00:00:00 09/07/2021 18:27:26 [id number] [facility] Podiatry [place] [address] [place] [address] 09/21/2021 00:00:00 09/21/2021 12:48:31 [id number] [facility] Internal Med [facility] [address] [address] 12/26/2021 00:00:00 12/29/2021 16:22:29 [id number] [facility] Pulmonolo [facility] [place] [address] [place] [address] 01/23/2022 00:00:00 01/23/2022 11:59:41 [id number] [facility] General Surgery [address] [facility] [address] [address] 02/01/2022 00:00:00 02/01/2022 14:16:47 [id number] [facility] General Surgery [address] [facility] [address] [address] 03/08/2022 00:00:00 03/08/2022 13:02:41 [id number] [facility] Internal Med [facility] [address] [facility] [address] [address] 05/01/2022 00:00:00 05/01/2022 17:20:40 [id number] Peyton rodriguez MD [facility] Internal Med [facility] [address] [facility] [address] [address] 09/18/2022 16:45:10 09/18/2022 17:59:04 Screening - NAD [id number] Z13.9 Can do yearly flu shot UTD tdap 07/16/18Do COVID 19 vaccine, follow all CDC guidelines as per father he has not had this and does not want this 02/20/3031 : OK to do handicap parking paperwork RTC in 4 monthwith labsER if worse,he and his father did verbalize their understand ing of the above Acid reflux [id number] K2 1.9 OV 07/16/18On PPI that was given the hospital OV 11/19/18:O n PPI, all side effects explained, take only as needed, can do TUMS or zantac Addendum: 08/31/2019 : 0: Dr Titus Pacheco: [facility]: S/p EUS, s/p biopsy for an antral lesion, could be a leimyoma Is to get another in one year based on the biopsy report Addendum: 09/06/2019 : 0: Dr Pascual Daniels [facility]: Gastric emptying: Delayed gastric emptying Addendum: 09/29/2019 : 0: EGD Bx: chronic esophagiti s OV 02/03/2020 :On PPI refilled todayDoes wellDid see GI Dr Tobar and was put on metoclopra mide but mother has not given OV 08/25/2020 :Has gastropare sis and sees Dr Tobar0 07/26/2020; C-scope: done d/t diarrhea post cholecyste ctomy: Amadou Palaciosas: Next at age 47 yearsIs on the omeprazole and is doing wellAs per mother did have the EUS by Dr Pacheco on 08/22/2020 at [facility] and had the mass of the stomach biopsied no report available OV 02/20/2021 :On omeprazole On cholestyra mine, filled by Dr Alvarez, on 02/04/2021 Does well now OV 09/05/2021 :On cholestyra mineOn omeprazole 20mg po bidSees GI Dr Tobar as per his father OV 12/26/2021 :On diclyclomi neEGD 11/27/2021 : Dr Tobar CT A/P: 11/27/2021 : [facility], for emesis and abd pain: R inguinal hernia, hepatic steatosis, small pericardia l effusionOn pantoprazo le 40mg bid Dr Carlson OV 05/01/2022 :On dicyclomin Anton pantoprazo leDoes well Obstructiv e sleep apnea syndrome 18866820 G47.33 Does well, sees Teena Cotrell [employer]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 A/P 11/27/2021 : [facility] ECHO 01/25/2022 : [facility] Dr Oliver Boyd 01/18/2022 Right inguinal hernia [address] Michelle, s/p surgery, post op 03/08/2022 COVID-19 985754655 U07.1 S/p seen in the 06/24/2022 , treated with paxlovid Hernia of anterior abdominal wall 157628582 K43.9 [id number] Aquiles Wells DPM [facility] [address] [place] [address] 11/08/2022 17:05:54 11/22/2022 14:56:21 Pain of right ankle joint 7087230334 3352233 M25.571 Patient would benefit from an MRI to evaluate ligaments of the ankle secondary to injury and continued paincontin ue ankle bracerice therapymin imal weight-miya ring and activities follow-up post testing Equinus co ntracture of the ankle 766802255 M24.571 stretching exercises reviewedpo community healthble physical therapy Congenital pes planus 23 747740 Q66.51 continue custom orthotics [id number] Zane murillo MD [facility] [place] [address] [facility], [address] [place] [address] 03/19/2023 12:06:11 03/19/2023 13:41:35 Inguinal pain 062823537 R10.2 Right Inguinal [id number] Teena Piedra, DIATHERMY EQUIPMENT REPAIRER-[facility] Pulmonolo gy Domenico Nunes [address] [place] [address] 03/01/2023 14:02:29 03/01/2023 15:06:32 Mixed sleep apnea 828617960 G47.39 Home study Watch PAT testing 01/11/16 with AHI 39.2.Repea t home study on 12/10/18 with AHI 36.7.28 central apneas noted.He was started on APAP after insurance denial of titration. 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 If unable to fall asleep after 30 minutes, patient should get out of bed but should not engage in any activity that requires sustained mental alertness. -Maintain a regular bedtime and wake-up time even on weekends-A void excessive naps during the daytime. 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 [id number] Zane murillo MD [facility] General Surgery [address] [place] [address] 04/02/2023 12:48:27 04/02/2023 17:10:52 Right inguinal pain 5264601367 1978408 R10.31 [id number] Aquiles Wells DPM [facility] [place] [address], [facility] [address] [place] [address] 09/10/2023 09:11:15 09/10/2023 15:04:16 Gout 42533716 M10.9 right first MTPJrecomm end warm bath/ compress over jointrx MedrolRX hydrocodon efollow up as needed if pain cont [id number] Aquiles Wells DPM [facility] [place] [address], [facility] [address] [place] [address] 10/10/2023 15:39:12 10/10/2023 17:07:17 Pain in right foot 0418769116 15060 M79.671 recommend custom orthotics to be worn daily with supportive shoe gearmonito r for wounds infection at present seek medical attention immediatel yrice therapyant i-inflamma tories as needed over-the-c ounter per instructio nsfollow-u p in 3 months Congenital pes cavus of right foot [id number] 5320526 Q66.71 As above [id number] Peyton rodriguez MD [facility] Internal Med [place]ors [address] [facility] y , [facility] [place] [address] 12/02/2023 15:49:20 12/02/2023 16:47:53 Screening - NAD 834098081 Z13.9 Can do yearly flu shot UTD tdap 07/16/18Do COVID 19 vaccine, follow all CDC guidelines as per father he has not had this and does not want this 02/20/3031 : OK to do handicap parking paperwork RTC in 4 monthwith labsER if worse,he and his father did verbalize their understand ing of the above Acid reflux 797983826 K2 1.9 OV 07/16/18On PPI that was given the hospital OV 11/19/18:O n PPI, all side effects explained, take only as needed, can do TUMS or zantac Addendum: 08/31/2019 : 0: Dr Titus Pacheco: [facility]: S/p EUS, s/p biopsy for an antral lesion, could be a leimyoma Is to get another in one year based on the biopsy report Addendum: 09/06/2019 : 0: Dr Pascual Daniels [facility]: Gastric emptying: Delayed gastric emptying Addendum: 09/29/2019 : 0: EGD Bx: chronic esophagiti s OV 02/03/2020 :On PPI refilled todayDoes wellDid see GI Dr Tobar and was put on metoclopra mide but mother has not given OV 08/25/2020 :Has gastropare sis and sees Dr Tobar0 07/26/2020; C-scope: done d/t diarrhea post cholecyste ctomy: Amadou Palacios: Next at age 47 yearsIs on the omeprazole and is doing wellAs per mother did have the EUS by Dr Pacheco on 08/22/2020 at [facility] and had the mass of the stomach biopsied no report available OV 02/20/2021 :On omeprazole On cholestyra mine, filled by Dr Alvarez, on 02/04/2021 Does well now OV 09/05/2021 :On cholestyra mineOn omeprazole 20mg po bidSees GI Dr Tobar as per his father OV 12/26/2021 :On diclyclomi neEGD 11/27/2021 : Dr Tobar CT A/P: 11/27/2021 : [facility], for emesis and abd pain: R inguinal hernia, hepatic steatosis, small pericardia l effusionOn pantoprazo le 40mg bid Dr Carlson OV 05/01/2022 :On dicyclomin Anton pantoprazo leDoes well OV 12/02/2023 :On dicyclomin Anton pantoprazo leDoes well now Obstructiv e sleep apnea syndrome 65481659 G47.33 Does well, sees Teena Johns [employer]CH[employer]ING AND FISCAL CLERK, last OV 01/23/2022 S/p sleep study 07/19/2022 Dizziness 344952024 R42 Does well now Did use to see Dr Boyd Allergic rhinitis 371564 04 J30.9 On flonase and claritinOn singulair and also albuterol PRN, he was referred to an ENT by his GI Dr Tobar Pain in both feet 181677 8549 3186082 M79.[address] Akira Wells 10/10/2023 , recommend custom orthotics and f/u in 3 months Hyperlipidemia 17605233 E78.5 On rosuvastat in 20mg dailyGet labs Vitamin D deficiency 347 61290 E55.9 Persistent insomnia 1919 51219 G47.09 C/o insomniaSl eep hygeine explainedO n trazodone PRN all side effects explained to him and his father Pericardial effusion [address] A/P 11/27/2021 : [facility] ECHO 01/25/2022 : HV Dr Oliver Boyd 01/18/2022 Right inguinal hernia [address] Michelle, s/p surgery, post op 03/08/2022 Dr Michelle 04/02/2023 for R groin pain, f/u PRN COVID-19 987435707 U07.1 S/p seen in the 06/24/2022 , treated with paxlovid Anxiety 32973440 F41.9 Get a referral to psychiatry , may need to get on cymbalta or other meds as he feels that the anxiety does not allow him to sleep [id number] Peyton rodriguez MD [facility] Internal Med [place] [address] [address] [place] [address] 12/25/2023 11:55:13 12/25/2023 12:32:17 Complete trisomy 21 syndrome 49144015 Q90.9 OV 12/25/2023 :Here with his father to complete his [facility] ip paperwork that he brought with him from [facility] [employer], in [place], [place] Yumiko Alex was completed and faxed [phone] [id number] Peyton rodriguez MD [facility] Internal Med [place] [address] [facility] [place] [address] 03/09/2024 15:05:37 03/09/2024 15:51:22 Complete trisomy 21 syndrome 65302237 Q90.9 OV 12/25/2023 :Here with his father to complete his [facility] ip paperwork that he brought with him from [facility] [employer], in [place], [place] Yumiko Alex was completed and faxed [phone] Screening - NAD 81089585 3 Z13.9 Can do yearly flu shot UTD tdap 07/16/18Do COVID 19 vaccine, follow all CDC guidelines as per father he has not had this and does not want this 02/20/3031 : OK to do handicap parking paperwork RTC in 4 monthwith labsER if worse,he and his father did verbalize their understand ing of the above Acid reflux 383312160 K2 1.9 08/28/2019 : Dr Titus Pacheco: [facility]: S/p EUS, s/p biopsy for an antral lesion, could be a leimyoma 08/27/2019 : Dr Pascual Daniels [facility]: Gastric emptying: Delayed gastric emptying 08/13/2019 : EGD Bx: chronic esophagiti s Had gastropare sis and seen by Dr Ding 07/26/2020; C-scope: done d/t diarrhea post cholecyste ctomy: Amadou Palacios: Next at age 47 yearsIs on the omeprazole and is doing wellAs per mother did have the EUS by Dr Pacheco on 08/22/2020 at [facility] and had the mass of the stomach biopsied no report available Not on cholestyra mine EGD 11/27/2021 : Dr Lopez T A/P: 11/27/2021 : [facility], for emesis and abd pain: R inguinal hernia, hepatic steatosis, small pericardia l effusionOn pantoprazo le 40mg bid Dr Carlson On dicyclomin Anton pantoprazo le, renewed 03/09/2024 Does well now Obstructiv e sleep apnea syndrome 79478559 G47.33 Does well, sees Teena Johns PURCH[employer]ING AND FISCAL CLERK, last OV 03/01/2023 S/p sleep study 07/19/2022 Dizziness 407365363 R42 Does well nowDid use to see Dr Boyd Allergic rhinitis 174257 04 J30.9 On flonase and claritinOn singulair will d/c 03/09/2024 as his father feels that this causes anxietyOn albuterol PRN, he was referred to an ENT by his GI Dr Tobar Pain in both feet 177312 7036 3028958 M79.[address] Akira Wells 10/10/2023 , recommend custom orthotics and f/u in 3 months Hyperlipidemia 25040900 E78.5 On rosuvastat in 20mg dailyGet labs Vitamin D deficiency 347 45419 E55.9 Persistent insomnia 1919 98320 G47.09 C/o insomniaSl eep hygeine explainedO n trazodone PRN all side effects explained to him and his father Pericardial effusion [address] A/P 11/27/2021 : [facility] ECHO 01/25/2022 : [facility] Dr Oliver Boyd 01/18/2022 Right inguinal hernia [address] Michelle, s/p surgery, post op 03/08/2022 Dr Michelle 04/02/2023 for R groin pain, f/u PRN COVID-19 812134676 U07.1 S/p seen in the 06/24/2022 , treated with paxlovid Anxiety 33396593 F41.9 Get a referral to psychiatry , may need to get on cymbalta or other meds as he feels that the anxiety does not allow him to sleep OV 03/09/2024 : Now on trazodone, does well on this Orchitis a nd epididymitis 531448094 N45.3 Noted with some pain and swelling on the R testes, will get on cipro and get US testes, may need to see urology [id number] Hiram Schneider MD [facility] Pulmonolo gy [address] [address] 07/23/2024 10:27:50 07/23/2024 11:55:55 Obstructive sleep apnea syndrome 81261968 G47.33 G47.30 G47.36 G47.61 Periodic l imb movement disorder 085338786 G47.61 D50.8 E83.42 [id number] Peyton rodriguez MD [facility] Primary Care Joby connors [address] [place] [address] 07/27/2024 11:24:03 07/27/2024 12:41:40 Complete trisomy 21 syndrome 21022540 Q90.9 OV 12/25/2023 :Here with his father to complete his [facility] ip paperwork that he brought with him from [facility] [employer], in [place], [place] Yumiko Alex was completed and faxed [phone] [facility] - NAD 34031196 3 Z13.9 Can do yearly flu shot UTD tdap 07/16/18Do COVID 19 vaccine, follow all CDC guidelines as per father he has not had this and does not want this 02/20/3031 : OK to do handicap parking paperwork RTC in 4 monthswith labsER if worse,he and his father did verbalize their understand ing of the above Acid reflux 244113670 K2 1.9 08/28/2019 : Dr Titus Pacheco: [facility]: S/p EUS, s/p biopsy for an antral lesion, could be a leimyoma 08/27/2019 : Dr Pascual Daniels [facility]: Gastric emptying: Delayed gastric emptying 08/13/2019 : EGD Bx: chronic esophagiti s Had gastropare sis and seen by Dr Ding 07/26/2020; C-scope: done d/t diarrhea post cholecyste ctomy: Amadou Palacios: Next at age 47 yearsIs on the omeprazole and is doing wellAs per mother did have the EUS by Dr Pacheco on 08/22/2020 at [facility] and had the mass of the stomach biopsied no report available Not on cholestyra mine EGD 11/27/2021 : Dr Lopez T A/P: 11/27/2021 : [facility], for emesis and abd pain: R inguinal hernia, hepatic steatosis, small pericardia l effusionOn pantoprazo le 40mg bid Dr Carlson On dicyclomin Anton pantoprazo leDoes well now Obstructiv e sleep apnea syndrome 30931023 G47.33 Does well, sees Teena Johns PURCHASING AND FISCAL CLERK, last OV 03/01/2023 S/p sleep study 07/19/[address] Schneider 08/19/2024 Dizziness 832799462 R42 Does well nowDid use to see Dr Boyd Allergic rhinitis 188899 04 J30.9 On flonase and claritinOn singulair will d/c 03/09/2024 as his father feels that this causes anxietyOn albuterol PRN, he was referred to an ENT by his GI Dr Tobar Pain in both feet 862399 7598 2334547 M79.[address] Akira Wells 10/10/2023 , recommend custom orthotics and f/u in 3 months Hyperlipidemia 08598238 E78.5 On rosuvastat in 20mg dailyGet labs Vitamin D deficiency 347 74816 E55.9 Persistent insomnia 1919 73554 G47.09 C/o insomniaSl eep hygeine explainedO n trazodone PRN all side effects explained to him and his father Pericardial effusion [address] A/P 11/27/2021 : [facility] ECHO 01/25/2022 : [facility] Dr Oliver Boyd 01/18/2022 Right inguinal hernia [address] Michelle, s/p surgery, post op 03/08/2022 Dr Michelle 04/02/2023 for R groin pain, f/u PRN COVID-19 133901227 U07.1 S/p seen in the 06/24/2022 , treated with paxlovid Anxiety 75730255 F41.9 Get a referral to psychiatry , may need to get on cymbalta or other meds as he feels that the anxiety does not allow him to sleep OV 03/09/2024 : Now on trazodone, does well on this Orchitis a nd epididymitis 953687965 N45.3 Noted with some pain and swelling on the R testes, will get on cipro and get US testes, may need to see urology 03/10/2024 : US scrotumThi s is now resolved 07/27/2024 Upper resp iratory infection 36096909 J06.9 Get on levofloxac in and tessalon, hydrate as needed, states that he did get this from his mother who was diagnosed and treated with an antibiotic , he too wants to get an antibiotic , ER if worse [id number] Hiram Schneider MD [facility] Pulmonolo gy [address] [address] 08/28/2024 09:22:25 08/31/2024 12:23:10 Obstructive sleep apnea syndrome 43713890 G47.33 G47.30 G47.36 G47.61 Vitamin B1 2 deficiency (non anemic) 37367280 E53.8 Health Concerns Section Related Observation LastModified by Organization Detai ls LastModified Time None Recorded Concern Status LastModified by Organization Details LastModified Time None Recorded Advance Directives Directive N: Payers Encounter Date Sequence Insurance Name Policy Number Policy Bar Covered Member ID Bar Member ID Guarantor Name 12/25/2023 1 [place] [id number] Fred Olvera [id number] 12/25/2023 2 [place] [facility] 0000 [address] Olvera [id number] Orquidea Olvera 03/09/2024 1 [place] [id number] Fred Olvera [id number] Olvera 03/09/2024 2 [place] [facility] 0000 [address] Olvera [id number] Orquidea Olvera 07/23/2024 1 [place] [id number] Fred Olvera [id number] Olvera 07/23/2024 2 [place] [facility] 0000 [address] Olvera [id number] Orquidea Olvera 07/27/2024 1 [place] [id number] Fred Olvera [id number] Olvera 07/27/2024 2 [place] [facility] 0000 [address] Olvera [id number] Orquidea Olvera 08/28/2024 1 [place] [id number] Fred Olvera [id number] Murphy Wade 08/28/2024 2 [place] [employer] [place] [employer] 0000 [address] Wade [id number] Orquidea Murphy Wade Notes Date Note Type Note Provider Name and Address Organization Details Recorded Time 4 text/html Here with his father to establish carePast Hx:GERDHx of Down's syndromeGERDReviewed social, family and surgical [facility]He [facility] and blood workHe did have an abscess in the L axilla and is now healed, he has also noted some headaches, these are in the frontHe has noted some allergies and congestionNo recent CT headHe has glasses to wear and he is not wearing them and feels that he has headaches from themOV 02/11/18:ACV:Here with his motherHere with URI sxC/o sinus and nasal congestionNo fevers or chillsNo rashThick mucusNo cough, no blood in sputumNo chest pain, no SOBNo diarrheaOV 04/03/18:Here with his motherD/c from hospital for a pneumoniaHis mother states that he is not coughing any thingHe states that he does have a 'chest hurts' and he has noted a fever alsoNo chills, he also has some N/VHe is done with the antibiotics levaquinOV 07/16/18:Here with his fatherHe is doing well at this timeHe has not done any recent labsOV 11/19/18:Here with his fatherHe did do the labs on 07/18/18He states that he is doing well, he does have his birthday tomorrow and [place] 02[place]03/2020:Here for tele visitHe and his mother is agreeableHe did do the labsAs per mother he is doing well, he did see GIOV 08/25/2020:Tele vist and he is agreeable to do the visitHe is doing wellHere for his routine aptHe did do the labsOV 02/21/2021:Here for his routine aptHe is here with his fatherHe is doing wellC/o isomniaHe did do the labsOV 09/05/2021:Here for his routine aptHe is here with his father and is doing wellNo recent labs notedOV 12/26/2021:Here for his routine aptHere with his father, s/p ER visit for N/V and GERD, S/p EGD done OV 05/01/2022:Here for his f/u apt, he is still c/o cough, he did do the labs and also did get an ECHO on 01/25/2022, he is here with his father OV 09/18/2022:Here for his f/u apt, he is doing well today, he is here with his father did do the labs OV 12/02/2023: Here for his routine apt, he is here with his father, does well OV 12/25/2023: Visit here with his father to obtain guardianship paperwork for his Down's Syndrome, does well Peyton Palumbo MD [address] [facility] [facility] [address], [place], [address], [facility] City Notes 12/25/2023 12:48:00 4 text/html Here with his father to establish carePast Hx:GERDHx of Down's syndromeGERDReviewed social, family and surgical historyHe [facility] and blood workHe did have an abscess in the L axilla and is now healed, he has also noted some headaches, these are in the frontHe has noted some allergies and congestionNo recent CT headHe has glasses to wear and he is not wearing them and feels that he has headaches from themOV 02/11/18:ACV:Here with his motherHere with URI sxC/o sinus and nasal congestionNo fevers or chillsNo rashThick mucusNo cough, no blood in sputumNo chest pain, no SOBNo diarrheaOV 04/03/18:Here with his motherD/c from hospital for a pneumoniaHis mother states that he is not coughing any thingHe states that he does have a 'chest hurts' and he has noted a fever alsoNo chills, he also has some N/VHe is done with the antibiotics levaquinOV 07/16/18:Here with his fatherHe is doing well at this timeHe has not done any recent labsOV 11/19/18:Here with his fatherHe did do the labs on 07/18/18He states that he is doing well, he does have his birthday tomorrow and is [place] 02/03/2020:Here for tele visitHe and his mother is agreeableHe did do the labsAs per mother he is doing well, he did see GIOV 08/25/2020:Tele vist and he is agreeable to do the visitHe is doing wellHere for his routine aptHe did do the labsOV 02/21/2021:Here for his routine aptHe is here with his fatherHe is doing wellC/o isomniaHe did do the labsOV 09/05/2021:Here for his routine aptHe is here with his father and is doing wellNo recent labs notedOV 12/26/2021:Here for his routine aptHere with his father, s/p ER visit for N/V and GERD, S/p EGD done OV 05/01/2022:Here for his f/u apt, he is still c/o cough, he did do the labs and also did get an ECHO on 01/25/2022, he is here with his father OV 09/18/2022:Here for his f/u apt, he is doing well today, he is here with his father did do the labs OV 12/02/2023: Here for his routine apt, he is here with his father, does well OV 12/25/2023: Visit here with his father to obtain guardianship paperwork for his Down's Syndrome, does well OV 03/09/2024: Here for his f/u apt, he is doing well today, he is here with his father, no recent labs Peyton Palumbo MD [address] [facility] [facility] [address], [place], [address], [place] [facility] [employer] 03/09/2024 17:58:07 5 text/html Primary care/Referring provider: Peyton Palumbo MD During the [facility] split night sleep study on 05/11/14, sleep onset = 13 minutes, AHI = 41, Respironics large Comfort Gel full face mask @ 8/4 cmH2O + 8 breaths/minute was applied. During the [facility] home sleep study on 01/11/16, AHI = 39. During the [facility] home sleep study on 12/03/18, AHI = 37, supine AHI = 62. During the [facility] titration sleep study on 07/19/22, sleep onset = 4 minutes, REM onset = 342 minutes, Respironics small Wisp nasal mask @ 12 cmH2O was applied, PLMI = 12. At home since 03/05/19, the patient uses a Respironics Dream Station 2 Auto A-flex unit with heated humidification. The patient does not need the ramp to start low and go up slowly on the pressure anymore. There is no xerostomia in a.m. There is no hose/mask condensation with water.The patient wears an ltld-xpc-lngw nasal mask without chin strap. There is no claustrophobia, no nostril/nose bridge irritation, no facial rash, no facial numbness, no nose bleeding. The patient feels more refreshed upon waking and daytime alertness is improved. Energy levels are sustained for the remainder of the day. At home, the patient sleeps from 1 am to 10 am and wakes up without an alarm. Snoring: heavy, since .Snorting: noChoking: noCoughing: yesGasping: noGagging: noSighing: noWitnessed apnea: yesTwitching or jerking of leg(s), arm(s), body, head: yesTeeth grinding: yesTeeth clenching: yesSleeptalking: noSleepwalking: noSleep crying: noBedwetting: noTongue/lip/gum/cheek biting: noSleeping with open mouth: yesSleep paralysis: noHypnagogic hallucinations: noHypnopompic hallucinations: noVivid dreams: yesDifficulty with sleep onset: yesDifficulty with sleep maintenance: yesSleep interruptions: coughingPatient wakes up with: fatigue, cognitive impairment, mobility impairmentDaytime cataplexy: noMorning hypersomnolence: noAfternoon hypersomnolence: noCaffeine sources in diet: none Associated medical and psychiatric conditions:Congestive heart failure: noCoronary artery disease: noMyocardial infarction: noHypertension: noStroke: noBronchial asthma: noChronic obstructive pulmonary disease: noDepression: noBipolar disorder: noAnxiety: yesPanic disorder: noPosttraumatic stress disorder: noAttention deficit and hyperactivity disorder: noObsessive Compulsive disorder: noSchizophrenia: noSchizoaffective disorder: noPersonality disorder: noChronic analgesic use: noChronic sedative/hypnotic use: no EPWORTH SLEEPINESS SCALE (ESS) CHANCE OF DOZING SCORE0 = would never doze1 = slight chance of dozing2 = moderate chance of dozing3 = high chance of dozing SITUATION AND CHANCE OF DOZINGSitting and reading - 0Watching television - 1Sitting inactive in a public place (e.g. a theater or meeting) - 0As a passenger in a car for an hour without a break - 1Lying down to rest in the afternoon when circumstances permit - 1Sitting and talking to someone - 0Sitting quietly after lunch without alcohol - 0In a car, while stopped for a few minutes in the traffic - 0TOTAL SCORE 3Subjectively, patient has a slight chance of dozing. Hiram Schneider MD [address] [place] [address], [place], [address], [facility] [place] Notes 07/23/2024 11:54:37 5 text/html Here with his father to establish carePast Hx:GERDHx of Down's syndromeGERDReviewed social, family and surgical [facility]He [facility] and blood workHe did have an abscess in the L axilla and is now healed, he has also noted some headaches, these are in the frontHe has noted some allergies and congestionNo recent CT headHe has glasses to wear and he is not wearing them and feels that he has headaches from themOV 02/11/18:ACV:Here with his motherHere with URI sxC/o sinus and nasal congestionNo fevers or chillsNo rashThick mucusNo cough, no blood in sputumNo chest pain, no SOBNo diarrheaOV 04/03/18:Here with his motherD/c from hospital for a pneumoniaHis mother states that he is not coughing any thingHe states that he does have a 'chest hurts' and he has noted a fever alsoNo chills, he also has some N/VHe is done with the antibiotics levaquinOV 07/16/18:Here with his fatherHe is doing well at this timeHe has not done any recent labsOV 11/19/18:Here with his fatherHe did do the labs on 07/18/18He states that he is doing well, he does have his birthday tomorrow [place]Here for tele visitHe and his mother is agreeableHe did do the labsAs per mother he is doing well, he did see GIOV 08/25/2020:Tele vist and he is agreeable to do the visitHe is doing wellHere for his routine aptHe did do the labsOV 02/21/2021:Here for his routine aptHe is here with his fatherHe is doing wellC/o isomniaHe did do the labsOV 09/05/2021:Here for his routine aptHe is here with his father and is doing wellNo recent labs notedOV 12/26/2021:Here for his routine aptHere with his father, s/p ER visit for N/V and GERD, S/p EGD done OV 05/01/2022:Here for his f/u apt, he is still c/o cough, he did do the labs and also did get an ECHO on 01/25/2022, he is here with his father OV 09/18/2022:Here for his f/u apt, he is doing well today, he is here with his father did do the labs OV 12/02/2023: Here for his routine apt, he is here with his father, does well OV 12/25/2023: Visit here with his father to obtain guardianship paperwork for his Down's Syndrome, does well OV 03/09/2024: Here for his f/u apt, he is doing well today, he is here with his father, no recent labs OV 07/27/2024: Here for his f/u apt, he feels well today, he is here with his father, c/o URI sxC/o sinus and nasal congestionNo fevers or chillsNo rashDry cough, no blood in sputumNo chest pain, no SOBNo diarrhea Peyton Palumbo MD [address], [facility] [address], [place], [address], [place] [facility] [employer] 07/27/2024 12:46:06 5 text/html Primary care/Referring provider: Peyton Palumbo MD During the [facility] split night sleep study on 05/11/14, sleep onset = 13 minutes, AHI = 41, Respironics large Comfort Gel full face mask @ 8/4 cmH2O + 8 breaths/minute was applied. During the [facility] home sleep study on 01/11/16, AHI = 39. During the [facility] home sleep study on 12/03/18, AHI = 37, supine AHI = 62. During the [facility] titration sleep study on 07/19/22, sleep onset = 4 minutes, REM onset = 342 minutes, Respironics small Wisp nasal mask @ 12 cmH2O was applied. PLMI = 12 an dhe is here to go over his lab workup. At home since 03/05/19, the patient uses a Respironics Dream Station 2 Auto A-flex unit with heated humidification. The patient does not need the ramp to start low and go up slowly on the pressure anymore. There is no xerostomia in a.m. There is no hose/mask condensation with water.The patient wears an sgmc-ssl-hyki nasal mask without chin strap. There is no claustrophobia, no nostril/nose bridge irritation, no facial rash, no facial numbness, no nose bleeding. The patient feels more refreshed upon waking and daytime alertness is improved. Energy levels are sustained for the remainder of the day. At home, the patient sleeps from 1 am to 10 am and wakes up without an alarm. Snoring: heavy, since .Snorting: noChoking: noCoughing: yesGasping: noGagging: noSighing: noWitnessed apnea: yesTwitching or jerking of leg(s), arm(s), body, head: yesTeeth grinding: yesTeeth clenching: yesSleeptalking: noSleepwalking: noSleep crying: noBedwetting: noTongue/lip/gum/cheek biting: noSleeping with open mouth: yesSleep paralysis: noHypnagogic hallucinations: noHypnopompic hallucinations: noVivid dreams: yesDifficulty with sleep onset: yesDifficulty with sleep maintenance: yesSleep interruptions: coughingPatient wakes up with: fatigue, cognitive impairment, mobility impairmentDaytime cataplexy: noMorning hypersomnolence: noAfternoon hypersomnolence: noCaffeine sources in diet: none Associated medical and psychiatric conditions:Congestive heart failure: noCoronary artery disease: noMyocardial infarction: noHypertension: noStroke: noBronchial asthma: noChronic obstructive pulmonary disease: noDepression: noBipolar disorder: noAnxiety: yesPanic disorder: noPosttraumatic stress disorder: noAttention deficit and hyperactivity disorder: noObsessive Compulsive disorder: noSchizophrenia: noSchizoaffective disorder: noPersonality disorder: noChronic analgesic use: noChronic sedative/hypnotic use: no EPWORTH SLEEPINESS SCALE (ESS) CHANCE OF DOZING SCORE0 = would never doze1 = slight chance of dozing2 = moderate chance of dozing3 = high chance of dozing SITUATION AND CHANCE OF DOZINGSitting and reading - 1Watching television - 1Sitting inactive in a public place (e.g. a theater or meeting) - 1As a passenger in a car for an hour without a break - 0Lying down to rest in the afternoon when circumstances permit - 1Sitting and talking to someone - 0Sitting quietly after lunch without alcohol - 1In a car, while stopped for a few minutes in the traffic - 0TOTAL SCORE 5Subjectively, patient has a slight chance of dozing. Hiram Schneider MD [address] [place] [address], [place], [address], [facility] [place] [employer] 09/30/2024 14:41:25
--- OUTSIDE RECORDS SUMMARY | 2024-10-01 21:15 | XMS_ITS | Clinical Summary ---
Author Organization [facility] Emily means [facility] Address [address] [place] [address] Care Team Providers Care County Auditor Name Role Phone Peyton Palumbo MD Primary Care Provider Allergies Active Allergy Reactions Criticality Noted Date Comments Amoxicillin Rash Low 03/16/2009 Medications loratadine (CLARITIN) 10 mg tablet Take 10 mg by mouth 1 time daily as needed. 0 Active raNITIdine (ZANTAC) 150 mg tablet ranitidine 150 mg tablet TAKE 1 TABLET BY MOUTH TWICE DAILY FOR 30 DAYS, THEN TAKE 1 TABLET DAILY THEREAFTER Active rosuvastatin (CRESTOR) 20 mg tablet every 24 hours. Acti ve fluticasone propionate (FLONASE) 50 mcg/spray [place], Suspension nasal inhaler SPRAY 1 SPRAY INTO EACH NOSTRIL EVERY DAY 0 Active omeprazole (PriLOSEC) 40 mg Capsule, Delayed Release(E.C.) omeprazole 40 mg capsule,delayed release TAKE ONE CAPSULE BY MOUTH EVERY DAY Active Cholestyramine- Sucrose 4 gram Powder PLEASE SEE ATTACHED FOR DETAILED DIRECTIONS 0 Active cholestyramine aspartame (PREVALITE,QUES AMEZCUA LIGHT) 4 gram Powder in Packet Take 4 Grams by mouth. 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 Gender Identity Not on file Sexual Orientation Not on file Last Filed Vital Signs Vital Sign Reading Time Taken Comments Blood Pressure 125/73 02/21/2021 9:28 AM CDT Pulse 68 02/21/2021 9:28 AM CDT Temperature 36.7 C (98 F) 02/21/2021 9:28 AM CDT Respiratory Rate - - Oxygen Saturation 97% 02/21/2021 9:28 AM CDT Inhaled Oxygen Concentration - - Weight 84.8 kg (186 lb 14.4 oz) 02/21/2021 9:28 AM CDT Height 162.6 cm (5' 4 ) 02/21/2021 9:28 AM CDT Body Mass Index 32.08 02/21/2021 9:28 AM CDT Plan of Treatment Health Maintenance Due Date Last Done Comments DTAP/TDAP/TD VACCINES (7 - Td or Tdap) 04/24/2017 04/24/2007, 01/22/1997, 07/06/1994, Additional history exists INFLUENZA VACCINE (#1) 2024 HEPATITIS B VACCINES Completed 02/10/1999, 07/16/1998, 04/04/1998 HPV VACCINES Aged Out No longer eligi ble based on patient's age to complete this topic PNEUMOCOCCAL VACCINE 0-49 YEARS Aged Out No longer eligible based on patient's age to complete this topic Insurance BS TRADITIONAL MEDICAID [place] Care Teams County Auditor Relationship Specialty Start Date End Date Peyton Palumbo MD PCP - General Internal Medicine 07/28/19
--- OUTSIDE RECORDS SUMMARY | 2024-10-01 22:27 | XMS_ITS | Clinical Summary ---
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 Gender Identity Not on file Sexual Orientation [...] patient's age to [place] [address] IDPA [employer] [facility] Address: [address] [place] [address] [employer] ACCESS [facility] Address: [address] [place] [address] [employer] ACCESS OOS Advance Directives For more information, please contact: [phone] * Full Code (Latest Code Status on File) Date Activated Date Inactivated Comments 10/14/2023 7:44 AM 10/14/2023 2:33 PM * Full Code Date Activated Date Inactivated Comments 08/22/2020 9:40 AM 08/22/2020 5:59 PM * Full Code Date Activated Date Inactivated Comments 08/28/2019 9:46 AM 08/28/2019 4:23 PM Care Teams Wound Treatment Rn Relationship Specialty Start Date End Date Praveen Palumbo MD [address] [address] PCP - General Internal Medicine 10/09/23
--- OUTSIDE RECORDS SUMMARY | 2024-10-01 22:27 | XMS_ITS | CONTINUITY OF CARE DOCUMENT ---
Author Name charly parks Address Unknown Organization [facility] Address [address] [place] [address] Phone [phone] Care Team Providers Care Lumber Tailer Name Role Phone Oren Boyd MD Unavailable FREDRICK FERRARA MD Unavailable [phone] FREDRICK FERRARA MD Unavailable PROBLEMS Condition Status Date Provider Notes Chest pain active Oren Boyd MD Dizziness active Oren Boyd MD Pericardial effusion active Oren Boyd MD Gastroparesis active Oren Boyd MD ENCOUNTERS Date Type Provider Location Encounter Diag nosis - In-person encounter Office Visit Oren Boyd MD [facility] Pericardial effusionGastroparesis - In-person encounter Office Visit Oren Boyd MD [facility] - In-person encounter Office Visit Oren Boyd MD [facility] - In-person encounter Office Visit Oren Boyd MD [facility] - In-person encounter Office Visit Oren Boyd MD [facility] Chest painDizziness VITAL SIGNS Date Observation Value Provider Body Mass Index (Ratio) 39.60 kg/m2 Sharon Boyd MD blood pressure, diastolic 84 mm[Hg] Ch ristopher [place] blood pressure, systolic 122 mm[Hg] Chr istopher [place] oxygen saturation, oximetry 98 % Christopher [place] respiratory rate E&M 20 /min Gavin pher [place] pulse rate 70 /min Jeremi Wayne al weight E&M 238 [lb_av] Jeremi Ferraroy al height E&M 65 [in_i] Jeremi Ferraroy al blood pressure, diastolic 84 mm[Hg] Li nkLogic blood pressure, systolic 122 mm[Hg] Ivon kLogic Body Mass Index (Ratio) 29.01 kg/m2 Sharon Boyd MD blood pressure, diastolic 62 mm[Hg] Deja [facility] [place] blood pressure, systolic 108 mm[Hg] Cary mendieta [place] oxygen saturation, oximetry 95 % Brittany [place] respiratory rate E&M 16 /min [facility] [place] pulse rate 72 /min [facility] [place] weight E&M 169 [lb_av] [facility] [place] height E&M 64 [in_i] Brittany [...] radhalizethrobby pulse rate 78 /min Lauryn Gonzales cunninghamer weight E&M 185 [lb_av] Lauryn Ellsworthshannan cunninghamer [...] Payer name Policy type / Coverage type [place] red democrat ID [id number] 1 HEALTHCARE AND FAMILY SERVICES Medicaid 9 [id number] ADVANCE DIRECTIVES Name Date POWER OF PER DIEM CLERK TREATMENT PLAN Date Name Performer [id number],C,N oted on CAT scan at [place] when in ER in November W ill check an echo. Oren Boyd MD [id number],C,Associated wi th eating. Oren Boyd MD [id number],S, Oren Boyd MD Cardiology:Noted on CAT scan at [place] when in ER in November W ill [...] Hookup Oren Boyd MD com pleted SNOMED-CT: 960996586 [id number] Current Medications Documented Oren Boyd MD completed SNOMED-CT: [id number] Physical Exam, Performed: Pulse Exam of Foot Oren Boyd MD completed EKG Oren Boyd MD completed SNOMED-CT: [id number] Current Medications Documented Oren Boyd MD completed
--- OUTSIDE RECORDS SUMMARY | 2024-10-01 22:27 | XMS_ITS | Clinical Summary ---
Author Organization [facility] Address [address] [place] [address] Care Team Providers Care Screener And Blender Name Role Phone Michelle Irby MD Unavailable Peyton Palumbo MD Primary Care Provider Source Comments [facility],non-owned Affiliates and Associated Physician Practices is amultiple site organization consisting of ambulatory clinics and hospital sitesin [place], [place], [place] and [place]. This disclosure is being madepursuant to the Care Everywhere program and may not contain all information available regarding this patient. Last updated 18.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 VICE PRESIDENT Pulse 66 07/17/2011 11:22 AM ACADEMIC AFFAIRS VICE PRESIDENT Temperature 36.8 C (98.3 F) 07/17/2012 4:12 PM ACADEMIC AFFAIRS VICE PRESIDENT Respiratory Rate - - Oxygen Saturation - - Inhaled Oxygen Concentration - - Weight 78 kg (172 lb) 07/17/2012 4:12 PM ACADEMIC AFFAIRS VICE PRESIDENT Height 161.3 cm (5' 3.5 ) 07/17/2011 11:22 AM CS T Body Mass Index 29.99 07/17/2011 11:22 AM ACADEMIC AFFAIRS VICE PRESIDENT Plan of Treatment Health Maintenance Due Date [...] age to complete this topic Care Teams Screener And Blender Relationship Specialty Start Date End Date Michelle Irby MD PCP - Pediatrics 03/16/09 Peyton Palumbo MD [address] [address] PCP - General 11/29/21
--- OUTSIDE RECORDS SUMMARY | 2024-10-01 22:27 | XMS_ITS | Clinical Summary ---
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
--- OUTSIDE RECORDS SUMMARY | 2024-10-01 22:27 | XMS_ITS | Referral Summary ---
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 Gender Identity Not on file Sexual Orientation [...] Advance Directives For more information, please contact: [phone] * Full Code (Latest Code Status on File) Date Activated Date Inactivated Comments 10/14/2023 7:44 AM 10/14/2023 2:33 PM * Full Code Date Activated Date Inactivated Comments 08/22/2020 9:40 AM 08/22/2020 5:59 PM * Full Code Date Activated Date Inactivated Comments 08/28/2019 9:46 AM 08/28/2019 4:23 PM Care Teams Laborer Pie Bakery Relationship Specialty Start Date End Date Praveen Palumbo MD [address] [facility] [address] [place] [address] PCP - General Internal Medicine 10/09/23
== END 2024-10-01 21:15 | disposition left against medical advice (07) ==
PROVIDERS: PCP Internal Medicine
DX: R11.10 Vomiting, unspecified (principal)
CPT/HCPCS: 99199